=== PATIENT | male | born 1945 | race Caucasian/White ===

== ENCOUNTER 2018-12-28 09:57 | Outpatient (CLI) | payer MEDICARE, BC, SELFPAY ==
[2018-12-28 11:27] LABS: CREATININE 1.01 mg/dL (0.70-1.30)
[2018-12-29 08:45] LABS: PSA, Screening 3.4 ng/ml (0-6.5)
== END 2018-12-28 10:17 ==
PROVIDERS: PCP Family Medicine; Visit Provider Family Medicine
DX: R03.0 Elevated blood-pressure reading, without diagnosis of hypertension (principal); Z12.5 Encounter for screening for malignant neoplasm of prostate
CPT/HCPCS: 84153; 82565

== ENCOUNTER 2019-09-07 01:51 | Outpatient (CLI) | payer MEDICARE, BC, SELFPAY ==
[2019-09-07 09:00] LABS: HCT 43.8 % (40.0-50.0); HGB 14.6 g/dL (13.5-17.5); Mean Corp. HGB Concentration 33.3 g/dL (32.0-36.0); Mean Corpuscular Hemoglobin 27.3 pg (27.0-33.0); Mean Platelet Volume 10.1 fL (8.0-11.0); Platelet Count 248 x1000/uL (130-400); RBC 5.34 m/cumm (4.50-6.00); RBC Distribution Width 14.8 % (11.8-14.1); White Blood Cell Count 4.85 k/cumm (4.4-10.8)
[2019-09-07 10:22] LABS: ALT 24 U/L (16-63); AST 18 U/L (15-37); Albumin 3.7 g/dL (3.4-5.0); Alkaline Phosphatase 66 U/L (46-116); Anion Gap 9.9 mmol/L (3-11); BUN 16 mg/dL (7-18); Bilirubin, Total 0.5 mg/dL (0.2-1.0); CO2 27.1 mmol/L (21.0-32.0); CREATININE 1.15 mg/dL (0.70-1.30); Calcium 8.8 mg/dL (8.5-10.1); Calculated LDL 93 mg/dL; Chloride 104 mmol/L (98-107); Cholesterol 157 mg/dL (<200); Glucose 98 mg/dL (74-106); HDL Cholesterol 58 mg/dL (40-60); Potassium 4.2 mmol/L (3.5-5.1); Sodium 141 mmol/L (136-145); TSH (W/Ref FT4) 2.86 uIU/mL (0.36-3.74); Total Protein 7.3 g/dL (6.4-8.2); Triglyceride 30 mg/dL (<150)
== END 2019-09-07 02:11 ==
PROVIDERS: PCP Family Medicine; Visit Provider Family Medicine
DX: I10 Essential (primary) hypertension (principal); F32.9 Major depressive disorder, single episode, unspecified; N20.0 Calculus of kidney
CPT/HCPCS: 36415; 80053; 80061; 85027; 84443

== ENCOUNTER 2020-08-25 15:44 | Outpatient (CLI) | payer MEDICARE, BC, SELFPAY ==
--- NOTE | 2020-08-25 13:15 | DI.RAD_ITS ---
EXAM: XR KNEE RT 3V AP,LAT,SURJIT CLINICAL HISTORY: R knee pain. TECHNIQUE: 2D digital imaging was performed. COMPARISON: No previous for comparison. FINDINGS: BONES: No acute fracture is present. No bony destructive lesion is seen. There is a small enthesophyt e at the superior patella. JOINTS: The knee is normally aligned. There is mild narrowing of the medial femoral tibial joint. N o joint effusion is seen. There is a small osteophyte at the posterior patella. SOFT TISSUE: Atherosclerosis. IMPRESSION: Mild degenerative changes of the right knee. DATA REPOSITORY: RADIATION DOSE DELIVERED:
--- NOTE | 2020-08-25 13:30 | DI.RAD_ITS ---
EXAM: XR HIP RT COMPLETE AP PELVIS CLINICAL HISTORY: R knee pain. TECHNIQUE: 2D digital imaging was performed. COMPARISON: No exams were available for comparison FINDINGS: BONES: No acute fracture is present. No bony destructive lesion is seen. JOINTS: No dislocation present. Marked degenerative changes are seen at the right hip characterized b y joint space narrowing, subchondral cyst and sclerosis, and periarticular spurring. Note is made of a left total hip replacement. SOFT TISSUE: Surgical clips are seen overlying the pelvis. Vascular calcifications are present. IMPRESSION: Marked degenerative changes of the right hip. Left THR. DATA REPOSITORY: RADIATION DOSE DELIVERED:
== END 2020-08-25 16:04 ==
PROVIDERS: PCP Family Medicine; Referring Provider Family Medicine; Visit Provider Student in an Organized Health Care Education/Training Program
DX: M17.11 Unilateral primary osteoarthritis, right knee (principal); M16.11 Unilateral primary osteoarthritis, right hip; Z96.642 Presence of left artificial hip joint
CPT/HCPCS: 73562; 99203; 73502

== ENCOUNTER 2021-03-31 03:37 | Outpatient (CLI) | payer MEDICARE, BC, SELFPAY ==
[2021-03-31 11:51] LABS: CREATININE 1.1 mg/dL (0.70-1.30); Potassium 4.2 mmol/L (3.5-5.1)
== END 2021-03-31 03:38 | disposition home or self-care (01) ==
LOC: LBO 03:37
PROVIDERS: PCP Family Medicine; Visit Provider Family Medicine
DX: I10 Essential (primary) hypertension (principal); E11.65 Type 2 diabetes mellitus with hyperglycemia
CPT/HCPCS: 36415; 82565; 84132

== ENCOUNTER 2021-04-02 03:06 | Outpatient (CLI) | payer MEDICARE, BC, SELFPAY ==
--- NOTE | 2021-04-02 08:45 | DI.RAD_ITS ---
Exam(s) RF JOINT INJECTION FLUORO GUID EXAM: RF JOINT INJECTION FLUORO GUID CLINICAL HISTORY: R HIP INJ UNDER FLUORO, PRIMARY OA RT HIP, M16.11 TECHNIQUE: Fluoroscopy provided. Radiologist not present. CONTRAST MATERIAL: None COMPARISON: No exams were available for comparison FINDINGS: Fluoroscopy was provided for Dr. Bullock during right hip therapeutic injection. Submitted image(s) reveal needle placement at the lateral aspect of the femoral head. Contrast was i njected. Please refer to the procedure report for complete details. Cumulative Dose: kirby Mcgraw=5.0 mGy IMPRESSION: RADIATION DOSE DELIVERED:
[2021-04-02] MEDS: Omnipaque 300 MG/ML 10 ML BTL IJ (14:02)
[2021-04-02] MEDS: Bupivacaine 0.5% Pres-Free 10 ML VIAL IJ (14:03)
[2021-04-02] MEDS: methylPREDNISolone ACETATE 80 MG/ML VIAL IM (14:03)
--- NOTE | 2021-04-02 14:28 | W.PROCNOTE ---
Date of service: 04/02/21 Time of Service: 13:42 Procedure Note Date of procedure: 04/02/21 Procedure: Right Hip Injection with Fluoroscopic Guidance Surgeon/Proceduralist/Physician: Juvencio Bullock Procedure Diagnosis: Right Hip Osteoarthritis Procedure Indications: Ariella has had persistent pain of the RIGHT hip and groin. Noninvasive measures have been tried. To serve as both diagnostic and therapeutic, an injection under fluoroscopy was recommended. I had discussed the risks of the procedure and the patient elected to proceed. Procedure Description: Ariella was greeted in the flouroscopy room. The correct side was identified and the consent was reviewed with the patient and signed. The patient was then placed in the supine position on the fluoroscopy table. The RIGHT hip was then prepped with Chloraprep. The anterolateral injection starting point was identiifed by bony landmarks and fluoroscopy. The skin and soft tissue in the tract of the injection was anesthetized with 1% Lidocaine. A spinal needle was then inserted deep into the hip joint at the level of the lateral femoral neck under fluoroscopic guidance. A small amount of Omnipaque solution was injected to confirm intraarticular placement. Once confirmed, the hip was injected with 6cc of 0.5% Bupivicaine and 80mg of Depo-Medrol. A bandaid was placed on the injection site. The patient tolerated the procedure well and noted improvement in pre-injection pain.
== END 2021-04-02 03:26 ==
PROVIDERS: PCP Family Medicine; Visit Provider Student in an Organized Health Care Education/Training Program
DX: M16.11 Unilateral primary osteoarthritis, right hip (principal); M25.551 Pain in right hip; R10.31 Right lower quadrant pain
CPT/HCPCS: 20610; 77002; J1040

== ENCOUNTER 2021-05-27 02:10 | Outpatient (CLI) | payer MEDICARE, BC, SELFPAY ==
--- NOTE | 2021-05-27 07:00 | DI.US_ITS ---
Exam(s) US LOWER EXTREMITY VENOUS RT EXAM: US LOWER EXTREMITY VENOUS RT CLINICAL HISTORY: superficial thrombus right calf,PHLEBITIS,THROMBOPHLEBITIS,I80.8 TECHNIQUE: Grayscale, color, and doppler imaging of the deep venous system of the right lower extrem ity was performed. COMPARISON: None FINDINGS: There is no evidence of intraluminal thrombus and there is normal compression and augmentation demons trated within the common femoral vein, femoral vein, and popliteal vein. In the ipsilateral calf the interrogated veins also exhibit normal compression/ augmentation properti es. The ipsilateral saphenofemoral junction is patent. There are 2 incidental findings. Firstly, there is a Swain cyst in the popliteal fossa measuring 2.4 x 1.6 x 2.1 cm. Secondly, in the anterior upper calf region there is an area of heterogeneous echoes measuring approx imately 2.1 x 0.6 x 2.2 cm which corresponds to an apparent palpable lump, apparently possible site o f injury. IMPRESSION: 1. No evidence of DVT in the right lower extremity. 2. There is a 21 x 6 x 22 millimeter finding in the anterior upper calf which is partially solid par tially cystic and possibly represents hematoma, given that there was apparently trauma to this area a nd this is the area of palpable lump. There is no superficial thrombophlebitis evident at this level . DATA REPOSITORY:
== END 2021-05-27 02:30 ==
PROVIDERS: PCP Family Medicine; Visit Provider Emergency Medicine
DX: I80.8 Phlebitis and thrombophlebitis of other sites (principal); R22.41 Localized swelling, mass and lump, right lower limb
CPT/HCPCS: 93971

== ENCOUNTER 2021-06-16 01:01 | Outpatient (CLI) | payer MEDICARE, BC, SELFPAY ==
--- NOTE | 2021-06-16 10:50 | DI.CT_ITS ---
Exam(s) CT RENAL COLIC WO EXAM: CT RENAL COLIC WO CLINICAL HISTORY: recurrent left flank pain,LT NEPHROLITHIASIS,N20.0. TECHNIQUE: Imaging Protocol: Axial computed tomography images with coronal and sagittal reformatted images were created and reviewed CONTRAST MATERIAL: Intravenous: none Oral: None COMPARISON: CT RENAL COLIC WO CONTRAST from 03/24/2016 FINDINGS: VISUALIZED LUNG BASES: No nodules nor pleural effusions evident. ABDOMEN: There is no ascites. LIVER: There are relatively stable hypodensities in the liver which exhibit minimal change from 2016 and are most probably benign cysts. GALLBLADDER/BILIARY: No obvious gallbladder pathology. CBD is not dilated. PANCREAS: No evidence of pancreatic mass nor dilatation of the pancreatic duct. SPLEEN: Spleen is not enlarged. No obvious intrasplenic lesions. ADRENALS: There are no significant adrenal masses. KIDNEYS:There is a 3.6 x 3.6 cm cyst in superior pole the right kidney. Slightly larger than on the previous study. No other significant focal findings in the right kidney. There is a small cyst in s uperior pole of the left kidney measuring 9 millimeters. Calculi seen in the lower pole of the left kidney are again noted but the previously present largest calculus in left kidney seen on the 2016 st udy has descended down the left ureter to the ureterovesical junction level, partially obscured by be am hardening artifact from the left hip prosthesis. However, there is significant dilatation of the left collecting system above this level with hydroureter and ipsilateral hydronephrosis.. ABDOMINAL AORTA: Abdominal aorta is not enlarged. LYMPH NODES: There is no retroperitoneal nor paraaortic adenopathy. ABDOMINAL WALL: Anterior abdominal wall hernia mesh noted both inguinal canals. No abnormal fluid co llections. GI: Extensive sigmoid diverticulosis. No obvious acute diverticulitis. PELVIS: LYMPH NODES: There is no intrapelvic nor inguinal adenopathy. GI: No evidence of appendicitis.Extensive sigmoid diverticulosis. No obvious acute diverticulitis. URINARY BLADDER: Not distended. Partially obscured by beam hardening artifact left hip prosthesis REPRODUCTIVE: Enlarged prostate OSSEOUS: Left hip prosthesis. Advanced degenerative changes right hip. IMPRESSION: 1. There is a large calculus in the lower left ureter which corresponds to the largest calculus which was evident in the left kidney on the prior CT scan of March 2016. This measures approximately 10 by 6 millimeters and is just above the ureterovesical junction. This area is partially obscured by kristie m hardening artifact from the ipsilateral left hip prosthesis. There few remaining smaller calculi i n the inferior pole the left kidney noted. 2. No calculi in the opposite-right kidney but there is a 3.6 cm benign cyst in the superior pole the right kidney noted, slightly increased in size from the prior study. No solid renal masses. 3. There is extensive sigmoid diverticulosis. No obvious acute diverticulitis although please note t hat the sigmoid is partially obscured by beam hardening artifact from the left hip prosthesis. Report sent stat. RADIATION DOSE DELIVERED: 782.89mGy.cm Total DLP DATA REPOSITORY: All CT scans at this facility are submitted to the National Radiology Data Registry (NRDR) Dose Index Registry (DIR) with the [employer] ([employer]). RADIATION OPTIMIZATION: All CT scans at this facility use at least one of these dose optimization te chniques: automated exposure control; mA and/or kV adjustment per patient size (includes targeted exa ms where dose is matched to clinical indication); or iterative reconstruction.
== END 2021-06-16 01:21 ==
PROVIDERS: PCP Family Medicine; Visit Provider Family Medicine
DX: N20.2 Calculus of kidney with calculus of ureter (principal); N28.1 Cyst of kidney, acquired; K76.89 Other specified diseases of liver; K57.30 Diverticulosis of large intestine without perforation or abscess without bleeding; Z96.642 Presence of left artificial hip joint
CPT/HCPCS: 74176

== ENCOUNTER → 2021-06-18 09:58 | Outpatient (BNVA) | payer MEDICARE, BC, SELFPAY | PROVIDERS: PCP Family Medicine; Referring Provider Family Medicine; Visit Provider Nurse Practitioner Gerontology | DX: N20.0 Calculus of kidney (principal); I10 Essential (primary) hypertension | CPT/HCPCS: 99214 ==

== ENCOUNTER 2021-06-18 15:25 | Outpatient (REF) | payer MEDICARE, BC, SELFPAY ==
[2021-06-23 17:19] LABS: Source: Passed Stone
== END 2021-06-18 15:26 | disposition home or self-care (01) ==
LOC: LBN 15:25
PROVIDERS: PCP Family Medicine; Visit Provider Nurse Practitioner Gerontology
DX: N20.0 Calculus of kidney (principal)
CPT/HCPCS: 82365

== ENCOUNTER 2021-07-22 00:17 | Outpatient (CLI) | payer MEDICARE, BC, SELFPAY ==
--- NOTE | 2021-07-22 06:45 | DI.US_ITS ---
Exam(s) US RENAL EXAM: US RENAL CLINICAL HISTORY: left stones monitoring/hydro?,N20.0,LT NEPHROLITHIASIS TECHNIQUE: Ultrasound performed using standard protocol. COMPARISON: US US LOWER EXTREMITY VENOUS RT from 05/27/2021 FINDINGS: Renal ultrasound was performed according to the usual protocol. Kidneys are normal in size and shape . There is no hydronephrosis. There is no visible nephrolithiasis at this time. Note is again made of a previously noted 37 millimeter in diameter simple cyst of the right renal mid pole. Urinary bladder is empty. IMPRESSION: No evidence of hydronephrosis or nephrolithiasis. DATA REPOSITORY:
== END 2021-07-22 00:37 ==
PROVIDERS: PCP Family Medicine; Visit Provider Nurse Practitioner Gerontology
DX: N20.0 Calculus of kidney (principal); N28.1 Cyst of kidney, acquired
CPT/HCPCS: 76770

== ENCOUNTER → 2021-07-27 13:24 | Outpatient (BNVA) | payer MEDICARE, BC, SELFPAY | PROVIDERS: PCP Family Medicine; Referring Provider Family Medicine; Visit Provider Nurse Practitioner Gerontology | DX: N20.0 Calculus of kidney (principal) | CPT/HCPCS: 99213 ==

== ENCOUNTER 2021-09-03 02:26 | Outpatient (CLI) | payer MEDICARE, BC, SELFPAY ==
--- NOTE | 2021-09-03 14:10 | DI.RAD_ITS ---
Exam(s) RF JOINT INJECTION FLUORO GUID EXAM: RF JOINT INJECTION FLUORO GUID CLINICAL HISTORY: R HIP PAIN,rt hip inj under fluoro,oa rt hip, m16.11 TECHNIQUE: Fluoroscopy provided. Radiologist not present. CONTRAST MATERIAL: None COMPARISON: No exams were available for comparison FINDINGS: Fluoroscopy was provided for Dr. Bullock during right hip injection. Submitted image(s) reveal needle placement at the lateral aspect of the junction of the upper femoral neck and femoral head. Intra-articular contrast injected Please refer to the procedure report for complete details. Cumulative Dose: kirby Mcgraw=0.527 mGy IMPRESSION: RADIATION DOSE DELIVERED:
--- NOTE | 2021-09-03 14:25 | W.PROCNOTE ---
Date of service: 09/03/21 Time of Service: 13:55 Procedure Note Date of procedure: 09/03/21 Procedure: Right Hip Injection with Fluoroscopic Guidance Surgeon/Proceduralist/Physician: Juvencio Bullock Procedure Diagnosis: Right Hip Osteoarthritis Procedure Indications: Ariella has had persistent pain of the RIGHT hip and groin. Noninvasive measures have been tried and he has had success with previous right hip injection. Therefore, an injection under fluoroscopy was recommended. I had discussed the risks of the procedure and the patient elected to proceed. Procedure Description: Ariella was greeted in the flouroscopy room. The correct side was identified and the consent was reviewed with the patient and signed. The patient was then placed in the supine position on the fluoroscopy table. The RIGHT hip was then prepped with Chloraprep. The anterolateral injection starting point was identiifed by bony landmarks and fluoroscopy. The skin and soft tissue in the tract of the injection was anesthetized with 1% Lidocaine. A spinal needle was then inserted deep into the hip joint at the level of the lateral femoral neck under fluoroscopic guidance. A small amount of Omnipaque solution was injected to confirm intraarticular placement. Once confirmed, the hip was injected with 6cc of 0.5% Bupivicaine and 80mg of Depo-Medrol. A bandaid was placed on the injection site. The patient tolerated the procedure well and noted improvement in pre-injection pain.
[2021-09-03] MEDS: methylPREDNISolone ACETATE 80 MG/ML VIAL IM (14:58)
[2021-09-03] MEDS: Omnipaque 300 MG/ML 10 ML BTL IJ (15:00)
[2021-09-03] MEDS: Bupivacaine 0.5% Pres-Free 10 ML VIAL 5 ML IJ (15:01)
== END 2021-09-03 02:46 ==
PROVIDERS: PCP Family Medicine; Visit Provider Student in an Organized Health Care Education/Training Program
DX: M16.11 Unilateral primary osteoarthritis, right hip (principal); M25.551 Pain in right hip; R10.31 Right lower quadrant pain
CPT/HCPCS: 20610; 77002; J1040

== ENCOUNTER 2021-12-14 14:43 | Outpatient (CLI) | payer MEDICARE, SELFPAY ==
--- NOTE | 2021-12-14 13:45 | DI.RAD_ITS ---
Exam(s) XR PELVIS AP EXAM: XR PELVIS AP CLINICAL HISTORY: [facility] planning. TECHNIQUE: 2D digital imaging was performed. One view with template ball COMPARISON: CR XR HIP RT COMPLETE AP PELVIS from 08/25/2020 FINDINGS: There has been no change in the left hip prosthesis. There has been further worsening of degenerativ e changes of the right hip. There is severe superior hip joint space narrowing with a [id number] a ppearance. There is periarticular spurring and subchondral cyst formation of the femoral head. Ther e is also some flattening of the femoral head and remodeling of the superior acetabulum. IMPRESSION: Severe degenerative changes of the right hip. DATA REPOSITORY: RADIATION DOSE DELIVERED:
== END 2021-12-14 14:44 | disposition home or self-care (01) ==
LOC: DIORS 14:43
PROVIDERS: PCP Family Medicine; Referring Provider Family Medicine; Visit Provider Student in an Organized Health Care Education/Training Program
DX: M16.11 Unilateral primary osteoarthritis, right hip (principal)
CPT/HCPCS: 99212; 72170

== ENCOUNTER → 2021-12-29 13:58 | Outpatient (BNVA) | payer MEDICARE, BC, SELFPAY | PROVIDERS: PCP Family Medicine; Referring Provider Family Medicine | DX: M16.11 Unilateral primary osteoarthritis, right hip (principal) ==

== ENCOUNTER 2022-01-04 01:52 | Outpatient (CLI) | payer MEDICARE, SELFPAY | END 2022-01-04 01:53 | disposition home or self-care (01) | LOC: LBO 01:53 | PROVIDERS: PCP Family Medicine; Visit Provider Student in an Organized Health Care Education/Training Program ==

== ENCOUNTER 2022-01-04 02:08 | Outpatient (CLI) | payer MEDICARE, SELFPAY ==
[2022-01-04 11:16] LABS: HCT 43.2 % (40.0-50.0); MCH 27.3 pg (27.0-33.0); MCHC 32.4 % (32.0-36.0); MCV 84 fL (80-95); MPV 10.8 fL (8.0-11.0); Platelet Count 238 10^3/uL (130-400); RBC 5.13 10^6/uL (4.36-5.78); RDW 14.6 % (11.8-14.1); RDW-SD 45.2 fL; WBC 7.39 10^3/uL (4.4-10.8)
[2022-01-04 11:58] LABS: Anion Gap 8.3 mmol/L (3-11); BUN 23 mg/dL (7-18); CO2 26.7 mmol/L (21.0-32.0); CREATININE 1.3 mg/dL (0.70-1.30); Calcium 8.9 mg/dL (8.5-10.1); Chloride 110 mmol/L (98-107); Estimated GFR 53.39 (mL/min/1.73m2); Glucose 108 mg/dL (74-106); Potassium 4.3 mmol/L (3.5-5.1); Sodium 145 mmol/L (136-145)
[2022-01-05 11:30] LABS: COVID-19 RT-PCR UVMMC Result Negative (Negative)
== END 2022-01-04 02:09 | disposition home or self-care (01) ==
LOC: LBO 02:09
PROVIDERS: PCP Family Medicine; Visit Provider Student in an Organized Health Care Education/Training Program
DX: M25.551 Pain in right hip (principal); M16.11 Unilateral primary osteoarthritis, right hip; Z01.818 Encounter for other preprocedural examination; Z20.822 Contact with and (suspected) exposure to COVID-19; Z01.812 Encounter for preprocedural laboratory examination
CPT/HCPCS: 36415; 80048; 85027; 87635; U0003

== ENCOUNTER 2022-01-06 08:23 | Day surgery (SDC) | payer MEDICARE, SELFPAY ==
[2022-01-06] VITALS (8 sets, daily range): BP systolic 150–198; BP diastolic 82–98; PULSE 51–66; RESP 6–18; TEMP 36.1–37; O2SAT 96–100; BMI 27.1
[2022-01-06] MEDS: Acetaminophen 500 MG TAB 1000 MG PO (08:58)
[2022-01-06] MEDS: Celecoxib 200 MG CAP 400 MG PO (08:58)
[2022-01-06] MEDS: Lactated Ringers 1,000 ML 80 ML IV (09:13)
--- NOTE | 2022-01-06 10:14 | W.ANESPRE ---
General Info Date of Service Date Performed: 01/06/22 Height: 6 ft 1 in Weight: 93.3 kg Body Mass Index (BMI): 27.1 Surgical Procedure: Operation Date: 01/06/22 12:50 Proposed Procedure Side Surgeon p Hip Total Hip Anterior Right Juvencio Bullock MD Meds Allergies and Home Medications Allergies Allergy/AdvReac Type Severity Reaction Status Date / Time No Known Allergies Allergy Verified 01/06/22 08:41 Home Medication Medication Instructions Recorded prevagen 50 mg PO DAILY 03/18/21 valsartan 80 mg tablet 80 mg PO DAILY #90 tab 08/11/21 naproxen sodium 220 mg capsule 220 mg PO BID PRN 12/29/21 (Aleve) Current Visit Medications: Current Medications Generic Name Dose Route Start Last Admin Trade Name Freq PRN Reason Stop Dose Admin Acetaminophen 1,000 mg 01/06/22 06:00 01/06/22 08:58 Acetaminophen 500 Mg Tab PO 1,000 mg PREOP HANK Administration Celecoxib 400 mg 01/06/22 06:00 01/06/22 08:58 Celecoxib 200 Mg Cap PO 400 mg PREOP HANK Administration Tranexamic Acid 1,000 mg/ 60 mls @ 360 mls/hr 01/06/22 06:00 Sodium Chloride IV 01/06/22 23:59 PREOP HANK Ringer's Solution 1,000 mls @ 80 mls/hr 01/06/22 06:00 01/06/22 09:13 IV 02/04/22 23:59 80 mls/hr INFUSION HANK Administration Cefazolin Sodium/Dextrose 2 gm in 50 mls @ 100 mls/hr 01/06/22 06:00 Ancef Duplex IVPB 02/04/22 23:59 PREOP HANK IV Miscellaneous Supplies 1 each 01/06/22 06:00 Iv Access IV 02/04/22 23:59 DIRECTED HANK Sodium Chloride 0 ml 01/06/22 06:00 Normal Saline Flush 10 Ml Syr IV 02/04/22 23:59 PRN PRN Sodium Chloride 0 ml 01/06/22 06:00 Normal Saline 10 Ml Vial IJ 02/04/22 23:59 DIRECTED PRN Sterile Water 0 ml 01/06/22 06:00 Water,Injection,Sterile 10 Ml Vial IJ 02/04/22 23:59 DIRECTED PRN PFSH Active Problems Active Problems: Problem Status Onset Code Calculus of left kidney N20.0 Bone spur 05/03/13 M77.9 Depressive disorder 08/15/13 F32.9 Elevated BP without diagnosis of hypertension 10/07/16 R03.0 History of tobacco use Z87.891 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) [facility] [place] Primary osteoarthritis of right ankle [place] Ankle Fusion 2016 Repair of inguinal hernia (~2000) B/L Tobacco Smoking/Tobacco Use Status: Former Tobacco Use Second hand exposure: Yes Alcohol Alcohol Intake: current Alcohol intake frequency: 0-2 drinks per day Alcohol type: beer and hard liquor Substance Use Substance use: Never Substance use type: does not use Vital Signs and Lab Results Vital Signs Most Recent Vital Signs in EMR: Most Recent Vital Signs Temp Pulse Resp BP Pulse Ox 37.0 C 66 18 150/90 H 96 01/06/22 08:42 01/06/22 08:42 01/06/22 08:42 01/06/22 08:42 01/06/22 08:42 Lab Results Blood Type / Crossmatch: No Data to Display Complete Blood Count: White Blood Count 7.39 10^3/uL (4.4-10.8) 01/04/22 11:10 01/04/22 Red Blood Count 5.13 10^6/uL (4.36-5.78) 01/04/22 11:10 01/04/22 Hemoglobin 14.0 g/dL (13.5-17.5) 01/04/22 11:10 01/04/22 Hematocrit 43.2 % (40.0-50.0) 01/04/22 11:10 01/04/22 Platelet Count 238 10^3/uL (130-400) 01/04/22 11:10 01/04/22 Complete Metabolic Panel: Sodium Level 145 mmol/L (136-145) 01/04/22 11:10 01/04/22 Potassium Level 4.3 mmol/L (3.5-5.1) 01/04/22 11:10 01/04/22 Chloride Level 110 mmol/L (98-107) H 01/04/22 11:10 01/04/22 Carbon Dioxide Level 26.7 mmol/L (21.0-32.0) 01/04/22 11:10 01/04/22 Blood Urea Nitrogen 23 mg/dL (7-18) H 01/04/22 11:10 01/04/22 Creatinine 1.3 mg/dL (0.70-1.30) 01/04/22 11:10 01/04/22 Estimated GFR/1.73 m2 53.39 (mL/min/1.73m2) 01/04/22 11:10 01/04/22 Calcium Level 8.9 mg/dL (8.5-10.1) 01/04/22 11:10 01/04/22 Glucose Level 108 mg/dL (74-106) H 01/04/22 11:10 01/04/22 Liver Function Panel: No Data to Display Coagulation Panel: No Data to Display Cardiac Panel: No Data to Display Arterial Blood Gas: No Data to Display Venous Blood Gas: No Data to Display Pancreas Panel: No Data to Display Thyroid Panel: No Data to Display Infectious Disease: Coronavirus (COVID-19)(PCR) Negative (Negative) 01/04/22 10:57 01/04/22 Blood Cultures: No Data to Display Toxicology Panel: No Data to Display Anesthesia Assessment and Plan Anesthesia History Personal History: No History of Anesthesia Complications Family History: No Family History of Anesthesia Complications Exercise Tolerance Exercise Tolerance: Metabolic Equivalents>4 Pertinent Negatives Pertinent Negatives: No Symptoms of GERD Cardiac & Pulmonary Exam Cardiac Exam: Normal S1/S2 Heart Sounds Pulmonary Exam: Clear Bilateral Breath Sounds Implantable Cardiac Device Does patient have a Pacemaker or an ICD?: No Airway Exam Known Difficult Airway: No Mallampati Class: 2 Mouth Opening: Normal (> 3cm) Thyromental Distance: Greater than 3 cm Neck Range of Motion: Full ROM Neck Circumference: Normal Teeth Condition: Normal Dentition ASA Classification ASA Score: ASA 2 Emergency Case?: No NPO Status NPO Status: NPO Clears >2 hours, Solids >8 hours Anesthesia Plan Resuscitation Status: Full Code Anesthesia Technique: Spinal Anesthesia Airway Planned: Natural Airway Monitors Used: Standard Monitors
--- NOTE | 2022-01-06 10:33 | W.ANESPRE ---
General Info Date of Service Date Performed: 01/06/22 Height: 6 ft 1 in Weight: 93.3 kg Body Mass Index (BMI): 27.1 Surgical Procedure: Operation Date: 01/06/22 12:50 Proposed Procedure Side Surgeon p Hip Total Hip Anterior Right Juvencio Bullock MD Meds Allergies and Home Medications Allergies Allergy/AdvReac Type Severity Reaction Status Date / Time No Known Allergies Allergy Verified 01/06/22 08:41 Home Medication Medication Instructions Recorded prevagen 50 mg PO DAILY 03/18/21 valsartan 80 mg tablet 80 mg PO DAILY #90 tab 08/11/21 naproxen sodium 220 mg capsule 220 mg PO BID PRN 12/29/21 (Aleve) Current Visit Medications: Current Medications Generic Name Dose Route Start Last Admin Trade Name Freq PRN Reason Stop Dose Admin Acetaminophen 1,000 mg 01/06/22 06:00 01/06/22 08:58 Acetaminophen 500 Mg Tab PO 1,000 mg PREOP HANK Administration Celecoxib 400 mg 01/06/22 06:00 01/06/22 08:58 Celecoxib 200 Mg Cap PO 400 mg PREOP HANK Administration Tranexamic Acid 1,000 mg/ 60 mls @ 360 mls/hr 01/06/22 06:00 Sodium Chloride IV 01/06/22 23:59 PREOP HANK Ringer's Solution 1,000 mls @ 80 mls/hr 01/06/22 06:00 01/06/22 09:13 IV 02/04/22 23:59 80 mls/hr INFUSION HANK Administration Cefazolin Sodium/Dextrose 2 gm in 50 mls @ 100 mls/hr 01/06/22 06:00 Ancef Duplex IVPB 02/04/22 23:59 PREOP HANK IV Miscellaneous Supplies 1 each 01/06/22 06:00 Iv Access IV 02/04/22 23:59 DIRECTED HANK Sodium Chloride 0 ml 01/06/22 06:00 Normal Saline Flush 10 Ml Syr IV 02/04/22 23:59 PRN PRN Sodium Chloride 0 ml 01/06/22 06:00 Normal Saline 10 Ml Vial IJ 02/04/22 23:59 DIRECTED PRN Sterile Water 0 ml 01/06/22 06:00 Water,Injection,Sterile 10 Ml Vial IJ 02/04/22 23:59 DIRECTED PRN PFSH Active Problems Active Problems: Problem Status Onset Code Calculus of left kidney N20.0 Bone spur 05/03/13 M77.9 Depressive disorder 08/15/13 F32.9 Elevated BP without diagnosis of hypertension 10/07/16 R03.0 History of tobacco use Z87.891 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) [facility] [place] Primary osteoarthritis of right ankle [place] Ankle Fusion 2016 Repair of inguinal hernia (~2000) B/L Tobacco Smoking/Tobacco Use Status: Former Tobacco Use Second hand exposure: Yes Alcohol Alcohol Intake: current Alcohol intake frequency: 0-2 drinks per day Alcohol type: beer and hard liquor Substance Use Substance use: Never Substance use type: does not use Vital Signs and Lab Results Vital Signs Most Recent Vital Signs in EMR: Most Recent Vital Signs Temp Pulse Resp BP Pulse Ox 37.0 C 66 18 150/90 H 96 01/06/22 08:42 01/06/22 08:42 01/06/22 08:42 01/06/22 08:42 01/06/22 08:42 Lab Results Blood Type / Crossmatch: No Data to Display Complete Blood Count: White Blood Count 7.39 10^3/uL (4.4-10.8) 01/04/22 11:10 01/04/22 Red Blood Count 5.13 10^6/uL (4.36-5.78) 01/04/22 11:10 01/04/22 Hemoglobin 14.0 g/dL (13.5-17.5) 01/04/22 11:10 01/04/22 Hematocrit 43.2 % (40.0-50.0) 01/04/22 11:10 01/04/22 Platelet Count 238 10^3/uL (130-400) 01/04/22 11:10 01/04/22 Complete Metabolic Panel: Sodium Level 145 mmol/L (136-145) 01/04/22 11:10 01/04/22 Potassium Level 4.3 mmol/L (3.5-5.1) 01/04/22 11:10 01/04/22 Chloride Level 110 mmol/L (98-107) H 01/04/22 11:10 01/04/22 Carbon Dioxide Level 26.7 mmol/L (21.0-32.0) 01/04/22 11:10 01/04/22 Blood Urea Nitrogen 23 mg/dL (7-18) H 01/04/22 11:10 01/04/22 Creatinine 1.3 mg/dL (0.70-1.30) 01/04/22 11:10 01/04/22 Estimated GFR/1.73 m2 53.39 (mL/min/1.73m2) 01/04/22 11:10 01/04/22 Calcium Level 8.9 mg/dL (8.5-10.1) 01/04/22 11:10 01/04/22 Glucose Level 108 mg/dL (74-106) H 01/04/22 11:10 01/04/22 Liver Function Panel: No Data to Display Coagulation Panel: No Data to Display Cardiac Panel: No Data to Display Arterial Blood Gas: No Data to Display Venous Blood Gas: No Data to Display Pancreas Panel: No Data to Display Thyroid Panel: No Data to Display Infectious Disease: Coronavirus (COVID-19)(PCR) Negative (Negative) 01/04/22 10:57 01/04/22 Blood Cultures: No Data to Display Toxicology Panel: No Data to Display Anesthesia Assessment and Plan Anesthesia History Personal History: No History of Anesthesia Complications Family History: No Family History of Anesthesia Complications Exercise Tolerance Exercise Tolerance: Metabolic Equivalents>4 Implantable Cardiac Device Does patient have a Pacemaker or an ICD?: No Airway Exam Known Difficult Airway: No Mallampati Class: 2 Mouth Opening: Normal (> 3cm) Thyromental Distance: Greater than 3 cm Neck Range of Motion: Full ROM Neck Circumference: Normal Teeth Condition: Normal Dentition
--- NOTE | 2022-01-06 11:24 | W.PM.DS.N ---
DS: Diagnosis Discharge Diagnosis (1) Primary osteoarthritis of right hip: Status: Chronic Discharge Plan Disposition Patient Disposition: HOME Condition: Good Discharge Details Reason For Visit: Right hip DJD Attending Provider: Juvencio Bullock Primary Care Provider: Nixon Adrian Home Meds and New Rx's Prescriptions: New celecoxib [Celebrex] 200 mg capsule 200 mg PO BID Qty: 30 0RF aspirin 81 mg tablet,delayed release (DR/EC) 81 mg PO BID 30 Days Qty: 60 0RF acetaminophen 500 mg tablet 1,000 mg PO Q8H PRN Qty: 90 0RF Rx Instructions: Take two tablets up to every 8 hours as needed for pain pantoprazole 40 mg tablet,delayed release (DR/EC) 40 mg PO DAILY 30 Days Qty: 30 0RF docusate sodium [Colace] 100 mg capsule 100 mg PO BID Qty: 30 0RF oxycodone 5 mg tablet 5 mg PO Q6H PRN (Reason: severe post-operative pain) Qty: 12 0RF Rx Instructions: Take one tablet up to every 6 hours as needed for severe pain Continued prevagen 50 mg PO DAILY 0RF valsartan 80 mg tablet 80 mg PO DAILY Qty: 90 3RF Discontinued naproxen sodium [Aleve] 220 mg capsule 220 mg PO BID PRN0RF Discharge Instructions Additional Instructions: Total Hip Discharge Instructions Activity: The most important activity is to walk. You should try to take short walks a few times a day. You have no restrictions on movement or positioning, but do not try to force what you do. You will find some stiffness and weakness with hip flexion (lifting your knee). Do not try to strengthen this too early, continue to practice walking and stairs and this will come. - Outpatient physical therapy can be helpful to help return you to a normal gait and improve your flexibility and strength. This can start around 2 weeks. For some patients, it?s not necessary. Usually this is determined at the time of discharge or at the first post-operative visit. - You should wear the YVONNE hose on both legs for 2 weeks. Dressing: Keep the surgical dressing in place for at least one week. After the first week it may be removed and replace with light gauze and tape or nothing. It may get wet after 3 days but avoid soaking the dressing. If it gets wet, just lightly pat dry. It is important to always keep some gauze between skin folds, especially when you are sitting. Spend some time with the wound exposed when you are lying flat as the incision does wrinkle onto itself. Medications: - You should take Tylenol and an anti-inflammatory Celebrex as your primary pain control medications. If the Celebrex is too expensive or not covered, please call the office for another alternative (Advil/Ibuprofen or Naproxen/Aleve). - You have been prescribed a stronger pain medication Oxycodone for breakthrough pain, take as needed as prescribed. - You have also been prescribed a stomach acid reduction agent Pantoprozole to help reduce stomach acid and reflux. - You will be taking Aspirin 81mg twice a day for DVT prevention unless instructed otherwise. - If you have constipation you should take Colace (which has been prescribed) or Miralax (which you may purchase [id number]). It takes most people 3-4 days to have a bowel movement. Follow-up: 2 weeks If you have any acute concerns or questions, please do not hesitate to contact the office at [phone]. You may contact Dr. Bullock with any questions after hours through the hospital at [phone] or on his cell phone at [phone]. Referrals: Juvencio Bullock MD [ [facility] STAFF PHYSICIAN] - Equipment/Supplies: Walker Activity:: Activity as Tolerated Remove Dressings/Wound Care:: Do Not Remove Shower/Bathe:: Cover Diet:: As Tolerated Discharge Orders Discharge Orders: Discharge Order (Routine); Ordered 01/06/22 Ordered By: Juvencio Bullock DS: Summary Time Spent with Patient providing and/or coordinating discharge services: Greater than 30 minutes Status at Discharge Functional status at discharge: uses cane/walker Overall status at discharge: patient is progressing back to baseline Mental Status: mental status grossly normal Speech and Movement: speech and movement normal Mood: congruent mood Affect: normal affect Exam Psych Mental Status: mental status grossly normal Speech and Movement: speech and movement normal Mood: congruent mood Affect: normal affect DS: Data Vitals/I&O Vitals and I&O: Vital Signs Temperature 98.6 F 01/06/22 08:42 Pulse 66 01/06/22 08:42 Pulse Rhythm Regular 01/06/22 08:42 Respiratory Rate 18 01/06/22 08:42 Respiratory Depth Deep 01/06/22 08:42 Blood Pressure 150/90 H 01/06/22 08:42 Pulse Oximetry 96 01/06/22 08:42 Oxygen Delivery Method Room Air 01/06/22 08:42 Oxygen Flow Rate 0 01/06/22 08:42 Pain Level 2 01/06/22 08:42 Intake & Output 01/05/22 01/05/22 01/06/22 11:59 23:59 11:59 Weight 207 lb 15.992 oz 205 lb 11.06 oz PFSH All Active Problems Calculus of left kidney (Acute) Bone spur (Acute 05/03/13) FIRST TOE Depressive disorder (Acute 08/15/13) seasonal affective disorder Elevated BP without diagnosis of hypertension (Acute 10/07/16) History of tobacco use (Acute) Osteoarthritis of left thumb (Acute 10/07/16) Sleep disorder (Acute 01/28/16) Tubular adenoma of colon (Acute 11/15/16) HTN (hypertension) (Chronic) Well adult (Acute) Trigger finger of right hand (Acute) little finger Knee pain, right anterior (Acute) Impacted cerumen of right ear (Acute) Primary osteoarthritis of right knee (Acute) Primary osteoarthritis of right hip (Chronic) Intra-articular injection under fluoroscopy: 09/03/2021; 04/02/2021 Phlebitis and thrombophlebitis (Acute) Left nephrolithiasis (Acute) Medical History Calculus of left kidney Depressive disorder Surgical History BONE SPURS (FEET) (~1979) great toes bilateral - Dr. 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 [place] Primary osteoarthritis of right ankle [place] Ankle Fusion 2016 Repair of inguinal hernia (~2000) B/L Family History Mother , 87 No problems noted. Father , 85 Alzheimer's disease Sister Asthma Brother , 66 Parkinson's disease Brother CAD (coronary artery disease) Asthma Son No problems noted. Daughter No problems noted. Social History Smoking/Tobacco Use Status: Former Tobacco Use tobacco type: cigarettes, pipe and cigars Quit Date: 02/03/90 Second Hand Exposure: Yes Smoking risk assessment performed?: Yes Alcohol Intake: current Alcohol Intake frequency: 0-2 drinks per day Alcohol type: beer and hard liquor Drug use: Never Substance use type: does not use Caregiver/Support person: Yes Household members: spouse Housing: house Communication Needs: None Do you need help understanding health information?: Never Pets and animals: No Sexually active: Yes Do you think of yourself as: straight/heterosexual Current gender identity: male What is your relationship status?: Panel score (0-1 are the most socially isolated patients): 1 What type of physical activity do you participate in: walking and bicycling Duration: 30-45 minutes/day Frequency: daily Ayesha/Sikh: None Special ayesha needs: No Seatbelt use: always Helmet use: Yes Helmet use: always Drive intox or ride w/intox transit bus driver: No Do you feel safe at home: Yes Do you feel safe in your relationship?: Yes Additional Social history: unable to assess privately
[2022-01-06] MEDS: ceFAZolin 2 GM/50 ML BAG IVPB (12:13)
--- NOTE | 2022-01-06 13:21 | DI.RAD_ITS ---
Exam(s) XR HIP RT IN OR EXAM: XR HIP RT IN OR CLINICAL HISTORY: Primary osteoarthritis of right hip. TECHNIQUE: 2D and realtime digital imaging was performed. COMPARISON: No exams were available for comparison FINDINGS: Fluoroscopy was provided in the OR for Dr. Bullock. A hard copy image shows placement of a right hi p prosthesis. The alignment appears satisfactory. Please see procedure note for details. Fluoro time 24.1 seconds RADIATION DOSE DELIVERED: kirby Mcgraw=3.89 mGy
--- NOTE | 2022-01-06 14:10 | W.PM.OP ---
Date of service: 01/06/22 Time of Service: 13:55 Operative Note Operative Note DATE OF PROCEDURE: 01/06/22 PRE-OP DIAGNOSIS: Right Hip Osteoarthritis POST-OP DIAGNOSIS: same PROCEDURE: Right Anterior Total Hip Arthroplasty with Intraoperative Navigation SURGEON: Juvencio Bullock SUPERINTENDENT COMPRESSOR STATIONS: Felisa Torres ANESTHESIA TYPE: Spinal Refer to Anesthesia Record ESTIMATED BLOOD LOSS: 300 PATHOLOGY: none sent TOURNIQUET TIME: 0 COMPLICATIONS: None Patient was transported to: PACU Patient's condition: stable Implants: 1. Depuy [place] Acetabular Component, 58mm 2. Depuy Acetabular Liner, [id number] 3. Depuy Corail Coxa Vara Collared Femoral Stem, Size 14 4. Depuy Altrx Ceramic Femoral Head, Size 36+5mm Indications: I have seen Ariella in clinic for symptoms of hip arthritis, confirmed with radiographic findings. He has exhausted nonoperative methods and was having significant limitations in daily function and desired better function and less pain. I discussed the technical details of a hip replacement. I explained the risks of the procedure to include, but not limited to, bleeding, infection, pain, stiffness, fracture, damage to nerves and vessels, damage to muscles and tendons, loosening, instability, leg length inequality, need for repeat procedure, blood clot and cardiopulmonary demise. Despite these risks, Ariella elected to proceed. Findings: There was significant signs of arthritis throughout the hip with complete loss of cartilage of the superior femoral head. Procedure Description: Ariella was greeted in the preoperative holding area where the correct side was identified and marked. The consent was reviewed with the patient and signed. The history and physical was updated. All questions were answered. He was taken back to the operating room. A spinal anesthestic was then administered. The feet were wrapped with cast padding and Coban and then placed into the boot liners and then into the boots. Care was taken to protect the skin and make sure the heels were fully down and the boots were stable. The patient was then positioned onto the HANA table. Both legs were held in a neutral position. SCDs were applied. The patient was then slid down onto a peroneal post. Prophylactic antibiotics in the form of Cefazolin were administered. 1g of Tranxemic Acid was given intravenously within 30 minutes of incision. The right leg was then prepped with Chloraprep and draped in a standard fashion. A second prep with Chloraprep was performed prior to placement of a shower-curtain type drape with Iodine impregnated skin protection. A timeout to confirm correct identity, side and site, procedure, allergies, anesthesia, and medical concerns was performed. An obliquely oriented incision was made starting lateral to the ASIS and running distal over the Tensor Fascia Della (TFL) muscle belly toward the fibular head, approximately 10cm. The skin and soft tissue was dissected sharply, through Ke?s fascia, and to the fascia of the TFL. With the fascia and superior border of the IT band identified, the fascia was incised with a new knife just above any perforators from the IT band. The TFL muscle belly was bluntly dissected away from the fascia and moved laterally. The fat between TFL and rectus was identified to ensure the dissection was not within the TFL. Blunt dissection created space between abductors and the capsule and retractor was placed over the lateral femoral neck. The fibers of the rectus femoris tendon were identified and these were freed from the anterior capsule. A second cobra retractor was placed around the medial femoral neck. The TFL was further retracted laterally to show the deep fascia. Careful dissection through this layer identified three main crossing vessels of the lateral femoral circumflex. These were cauterized in multiple locations and then cut without any noticeable bleeding. The TFL was further released bluntly from the deep fascia to expose anterior hip capsule and fat The Miky orthopaedic retractor was then placed beneath the TFL and against sartorius and medial soft tissues to protect and retract the soft tissues. A T-capsulotomy was then performed starting at the superior lateral acetabulum and moving distally to the intertrochanteric ridge. These capsular flaps were tagged with a No. 1 Ethibond and elevated from within. The capsular flaps were released to the shoulder of the lateral neck and to the lesser trochanter to give excellent visualization of the proximal femur. A neck osteotomy was performed using an oscillating saw based on preoperative templates. This cut started in the shoulder and of the lateral neck and exited medially. The saw was at all times directed medially to avoid injury to the greater trochanter. Gross traction was applied to the leg and the osteotomy opened. The femoral head was removed with a corkscrew, making sure to protect the TFL on its exit. Traction was released after head removal. This was measured on the back table to determine the starting reamer size. Portions of the rectus obscuring visualization were minimally elevated off the superior acetabulum. An anterior retractor was placed over the anterior wall between capsule and labrum and attached to the Gripper retraction system. The femur was rotated to 90 degrees and medial capsule was fully released until the lesser trochanter was palpable and visible; the femur was returned to 30 degrees. A posterior retractor was placed similarly between capsule and labrum. This provided excellent visualization. The contents of the cotyloid fossa were removed with electrocautery and the labrum was removed with a knife. There was a notable floor osteophyte. There was significant chondromalacia of the superior acetabulum. Acetabular reaming began with a 54mm reamer. This first reaming was directed anterior to posterior and medial to get down to the true floor. This was inspected and reamed until the true floor was reached. The anterior retractor was then released and entry and exit was provided by traction on the capsular flaps. I then reamed sequentially up to a 58mm reamer where good fit was obtained. The larger reamers were oriented based on anatomical reference of the anterior and lateral tyler to ensure proper abduction and anteversion. Positioning and size was confirmed with the fluoroscopy. A 58mm Depuy [place] acetabular component was selected. The deep tissues were irrigated. The acetabular component was then impacted in a position of about 40-45 degrees of abduction and 15-20 degrees of anteversion, using the patient?s anatomy as the ultimate landmark. Fluoroscopy was used to confirm this. There was excellent program schedule clerk of the acetabular component and the inserting handle was removed. The acetabular liner, Depuy [id number] polyethylene liner, was inserted and lined up with the tines of the acetabular component. There was no soft tissue interposition. The liner was then impacted into position and confirmed to be well-seated. A portion of the tricia-articular cocktail was then injected around the acetabulum into the capsule and periosteum. This cocktail consisted of 123mg of Ropivacaine, 0.25mg of Epinephrine, 0.04mg of Clonidine, and 15mg of Ketorolac, diluted to 50cc. The leg was rotated to 120 degrees. Any remaining medial capsule was released until the lesser trochanter was easily palpable. A retractor was placed medially. The lateral capsule was further released into the shoulder to allow access to the greater trochanter. A Rosen retractor was placed over the greater trochanter which allowed the trochanter to flip in front of the capsule for excellent exposure. The leg was brought down into maximal extension and 20 degrees of adduction while ensuring there was no impingement on the acetabulum. Any remnant capsule within the trochanter was released. Piriformis and obturator externis were identified and protected. There was excellent access to the proximal femur. The lateral neck remnant was removed with a rongeur. A blunt canal probe was used to identify the canal and trajectory for later broaching. A box osteotome initiated the broach course. A small curved rasp and a curved curette were used to work laterally. Broaching then began with a size 8 Corail broach. This was inserted manually around the trochanter and into the canal before mallet blows. The broach was seated to a few millimeters below the cut level based on the neck cut and the preoperative template. Sequential broaching was continued with the Zaldivase pneumatic broaching device until a tight fit was obtained with good rotational control of the femur. A trial high offset neck was inserted along with a +5 trial head. The leg was brought out of extension and adduction and then reduced with traction and internal rotation. The leg was stable anteriorly in a position of 30 degrees of extension and 90 degrees of external rotation. Fluoroscopy was used to ensure there was no fracture and the stem was seated well. Leg lengths were checked with an AP pelvis and pelvic reference points. [email or web address] navigation system was used to confirm appropriate positioning and leg length and offset. Given that this leg was already longer than the contralateral side, the aim was not to add any leg length. Thus, going with the coxa vara would correctly recreate the offset with appropriate leg length. Once content with the desired offset and leg lengths, the leg was brought back into extension, external rotation and adduction. The periosteum and surrounding tissue was injected with remaining portion of the tricia-articular cocktail. The proximal femur was irrigated as well as the deep tissues. The Depuy Corail Coxa Vara collared stem, size 14, was then manually inserted into the proximal femur making sure to control rotation. It was then malleted into position with light blows, giving breaks to allow bone expansion and decrease risk of fracture. The selected Depuy Altrx Ceramic Head, size 36+5mm, was then placed onto the clean and dry trunnion and secured with impaction onto the tapered fit. The leg was brought back out of extension and adduction and reduced with traction and internal rotation. Stability was confirmed with no shuck at 90 degrees of external rotation and 30 degrees of extension. No impingement through range of motion arc. Final x-ray images were obtained with fluoroscopy to confirm adequate positioning and no intraoperative fracture. The deep tissues were thoroughly irrigated with Surgiphor, betadine solution. This was allowed to sit in the wound for 3 minutes before being thoroughly irrigated out with normal saline. The capsule was then reapproximated with the previously placed Ethibond sutures. The TFL fascia was finally closed with a No. 2 Stratafix, barbed suture. Deep tissues were then reapproximated with 0 Vicryl and a running 2-0 Vicryl. The skin was closed with a running 4-0 Monocryl in a subcuticular fashion. This was reinforced with skin glue. A Mepilex silver dressing was applied. At the end of the case, all counts were correct. Ariella was transferred to the hospital bed without difficulty and suffering no apparent complication. Ariella has a good prognosis. Physical therapy will start today and without restrictions, weight-bearing as tolerated. Aspirin 81mg BID will be used for DVT prophylaxis.
--- NOTE | 2022-01-06 15:16 | W.ANESPOSTOP ---
Postoperative Evaluation Date, Time and Location Date Performed: 01/06/22 Time Performed: 15:16 Patient Location: Day Surgery Unit Vital Signs Most Recent Imported Vital Signs: Most Recent Vital Signs Temp Pulse Resp BP Pulse Ox 36.3 C L 51 L 16 185/93 H 99 01/06/22 14:53 01/06/22 14:53 01/06/22 14:53 01/06/22 14:53 01/06/22 14:53 Pain Score Most Recent Pain Score: Most Recent Pain Score Pain Level 5 01/06/22 14:53 Assessment Mental Status: Awake (Alert & Oriented to Patient Baseline) Airway and Respiratory Function: Patent airway with normal (patient baseline) respiratory exam Cardiovascular Function: Hemodynamically Stable Hydration Status: Adequately Hydrated Nausea & Vomiting: No Nausea or Vomiting Pain: Pt. Denies Any Pain Peripheral Nerve Block: Patient did not receive a nerve block Postoperative Comments:: Pt. did not take valsartan this morning. We will give him his PO dose and have him continue tomorrow as usual.
--- NOTE | 2022-01-06 15:23 | PT.INIE ---
Date of service: 01/06/22 Time of Service: 15:23 PT Notes Visit Reasons: Right hip DJD Physical Therapy Day Surgery Initial Evaluation Date: 01/06/2022 Referring Doctor: IRISH Lacey PT Orders: PT CONSULT: S/P Ortho surgery Precautions: WBAT on R LE with AD. Patient Profile/Admitting Diagnosis: Ariella is a 76-year-old patient with primary osteoarthritis of the R hip and is S/P R anterior total hip arthroplasty on postoperative day 0. PMHX: Medical History?(Updated 12/29/21 @ 14:18 by Felisa Torres) Calculus of left kidney Depressive disorder Surgical History?(Updated 12/29/21 @ 14:18 by Felisa Torres) BONE SPURS (FEET) (~1979) great toes bilateral - Dr. MunroeColonoscopy - IV Sedation (11/15/16) History of total left hip replacement (10/31/07[place] [facility] [place] osteoarthritis of right ankle [place] Ankle Fusion 2016Repair of inguinal hernia (~2000) B/L Social History/Home Situation: Lives with in a private home with 4 steps to enter with a rail on the right going up. Independent with all ADLs prior to surgery. 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 Equipment Owned/DME: SPC Subjective: Agreeable to PT consult. Denies headache, chest pain, and dizziness throughout session. Agreeable to using FWW for the walk as he initially thought that he could do it without using anything. Did not report numbness in B LE. Objective: General Observation: Supine in bed. Mepilex Ag over surgical incision. TEDS in B legs. Mental Status: Alert and oriented x 4 Pain: Minimal ache in R hip that did not limit mobility performance ROM: Right Lower Extremity: Hip flexion WFL. Hip abduction WFL. Knee flexion WFL. Ankle dorsiflexion WFL. Ankle plantarflexion WFL. Left Lower Extremity: Hip flexion WFL. Hip abduction WFL. Knee flexion WFL. Ankle dorsiflexion WFL. Ankle plantarflexion WFL. Strength: Right Lower Extremity: Hip flexors 4/5. Hip abductors 4/5. Knee flexors 5/5. Knee extensors 4/5. Ankle dorsiflexors 1/5. Ankle plantarflexors 5/5. Left Lower Extremity:Hip flexors 5/5. Hip abductors 5/5. Knee flexors 5/5. Knee extensors 5/5. Ankle dorsiflexors 5/5. Ankle plantarflexors 5/5. Sensation: Intact as to pain and light pressure in bilateral lower extremity Bed Mobility/Transfers: Supine to sit supervision Sit to stand supervision Stand to sit supervision Bed to chair supervision Gait: 150 feet using FWW with step through gait pattern requiring only stand by assist. Stairs: Up and 6 x 4-inch steps and 4 x 6-inch steps while holding onto 1 rail and SPC with the orther hand, Step-to with stand by assist. THERA EX: LAQs x 10, Seated marches x 10, quads sets x10, gluteal sets x 10, ankle DF/PF x 10 Balance: Static Sitting: Normal Dynamic Sitting: Normal Static Standing: Fair Dynamic Standing: Fair Special Tests: Mobility Limitations Standardized Measure [facility] AM-PAC 6 clicks Basic Mobility Inpatient Short Form: Raw Score: 24 CMS Score: 0% deficit Informed Consent/Education: Patient instructed in purpose of PT consult. Education and training on initial set of exercises that can be done at home have been completed with patient and . Assessment: Ariella requires the use of FWW to maximize independence and reduce fall risk at home. Patient presents with clinical signs and symptoms consistent with current/admitting diagnoses that have resulted to mobility limitations, gait instability, generalized weakness, and impairment of motor control as demonstrated by the following impairment level findings: 1. Decreased strength to R hip major muscle groups 2. Impaired standing balance Impairments are contributing to the following functional limitations: 1. Inability to safely ambulate without assistive device 2. Increase completion time for mobility ADL performance 3. Increased fall risk Patient is assessed as a 92461 moderate complexity based on the following: History: 76-year-old male with impairment level findings, functional limitations, and past medical history as indicated above Examination: Demonstrable impairment in strength, balance, and mobility level with underlying impairments and functional limitations as documented above Presentation: Evolving Decision Makin moderate complexity Goals: N/A. PT evaluation and 1-2 treatment sessions only for functional mobility training using recommended AD and for HEP instruction. Plan of Care/Treatment Plan: N/A. PT evaluation and 1-2 treatment session only for functional mobility training using recommended AD and for HEP instruction. DISCHARGE RECOMMENDATIONS: [] Home with no services [] [] Home with services [specify] [X] Home with outpatient PT. Home when medically cleared by orthopedic surgeon. Outpatient PT to maximize return to full ADl performance and independent community ambulation. SNF for continued rehabilitation [] [] Retail Area Manager Care [] [] SNF versus LTC based on ability to participate and progress [] TREATMENT CODE/TIME: 66177 x 15 minutes, 73522 x 27 minutes beginning at 15:23 PM. Thank you for the opportunity to participate in the care of this patient. Asia Mnaning PT, DPT, CLT [facility] [place], [place]
[2022-01-06] MEDS: Valsartan 80 MG TAB PO (15:34)
== END 2022-01-06 16:34 | disposition home or self-care (01) ==
PROVIDERS: PCP Family Medicine; Visit Provider Student in an Organized Health Care Education/Training Program
PROC: (CPT 27130; principal; 2022-01-06 12:30)
DX: M16.11 Unilateral primary osteoarthritis, right hip (principal); I10 Essential (primary) hypertension; Z87.891 Personal history of nicotine dependence
CPT/HCPCS: 20985; 27130; C1766; 97162; 97530; 73501; J0690; J2250; J2405

== ENCOUNTER 2022-01-21 13:27 | Outpatient (CLI) | payer MEDICARE, SELFPAY ==
--- NOTE | 2022-01-21 11:15 | DI.RAD_ITS ---
Exam(s) XR HIP RT COMPLETE AP PELVIS EXAM: XR HIP RT COMPLETE AP PELVIS CLINICAL HISTORY: 1ST POST OP R MYKE. TECHNIQUE: 2D digital imaging was performed. Two images were obtained. AP and lateral views were ob tained. COMPARISON: CR XR HIP RT COMPLETE AP PELVIS from 08/25/2020 XA XR HIP RT IN OR from 01/06/2022 FINDINGS: BONES: There are stable post operative changes present. No fracture or dislocation. JOINTS: The orthopedic hardware is in good position. SOFT TISSUE: Atherosclerosis is present. Surgical clips and suture is seen in the pelvis. IMPRESSION: Stable postoperative changes. DATA REPOSITORY: RADIATION DOSE DELIVERED:
== END 2022-01-21 13:28 | disposition home or self-care (01) ==
LOC: DIORS 13:27
PROVIDERS: PCP Family Medicine; Referring Provider Family Medicine; Visit Provider Student in an Organized Health Care Education/Training Program
DX: Z96.641 Presence of right artificial hip joint (principal); Z47.1 Aftercare following joint replacement surgery
CPT/HCPCS: 73502

== ENCOUNTER → 2022-02-22 10:44 | Outpatient (BNVA) | payer MEDICARE, SELFPAY | PROVIDERS: PCP Family Medicine; Referring Provider Family Medicine; Visit Provider Student in an Organized Health Care Education/Training Program | DX: Z47.1 Aftercare following joint replacement surgery (principal); Z96.641 Presence of right artificial hip joint ==

== ENCOUNTER → 2022-04-05 10:09 | Outpatient (BNVA) | payer MEDICARE, SELFPAY | PROVIDERS: PCP Family Medicine; Referring Provider Family Medicine; Visit Provider Student in an Organized Health Care Education/Training Program | DX: Z47.1 Aftercare following joint replacement surgery (principal); Z96.641 Presence of right artificial hip joint ==

== ENCOUNTER 2023-01-10 09:54 | Outpatient (CLI) | payer MEDICARE, SELFPAY ==
--- NOTE | 2023-01-10 09:00 | DI.RAD_ITS ---
Exam(s) XR HIP RT AP LAT ONLY EXAM: XR HIP RT AP LAT ONLY INDICATION: annual f/u R MYKE. COMPARISON: CR XR HIP RT COMPLETE AP PELVIS from 01/21/2022 TECHNIQUE: 2D digital imaging was performed. Two views. FINDINGS: There has been no change in the alignment of the right hip prosthesis. No abnormal bony lucencies ar e seen. There has been previous abdominal wall hernia repair. Vascular calcifications noted. DATA REPOSITORY: RADIATION DOSE DELIVERED:
== END 2023-01-10 09:55 | disposition home or self-care (01) ==
LOC: DIORS 09:55
PROVIDERS: PCP Family Medicine; Referring Provider Family Medicine; Visit Provider Student in an Organized Health Care Education/Training Program
DX: Z96.641 Presence of right artificial hip joint (principal); Z47.1 Aftercare following joint replacement surgery
CPT/HCPCS: 99213; 73502

== ENCOUNTER 2023-04-04 12:04 | Outpatient (CLI) | payer MEDICARE, SELFPAY ==
[2023-04-04 11:32] LABS: Anion Gap 7.1 mmol/L (3-11); BUN 25 mg/dL (7-18); CO2 25.9 mmol/L (21.0-32.0); CREATININE 1.2 mg/dL (0.70-1.30); Calcium 8.9 mg/dL (8.5-10.1); Chloride 108 mmol/L (98-107); Estimated GFR 61.52 (mL/min/1.73m2); Glucose 125 mg/dL (74-106); Sodium 141 mmol/L (136-145)
[2023-04-04 12:58] LABS: Hemoglobin A1C 5.4 % (<5.7)
== END 2023-04-04 12:05 | disposition home or self-care (01) ==
LOC: LBO 12:05
PROVIDERS: PCP Family Medicine; Visit Provider Family Medicine
DX: E11.51 Type 2 diabetes mellitus with diabetic peripheral angiopathy without gangrene (principal); E87.1 Hypo-osmolality and hyponatremia
CPT/HCPCS: 36415; 80048; 83036

== ENCOUNTER 2024-04-02 02:38 | Outpatient (CLI) | payer MEDICARE, SELFPAY ==
[2024-04-02 14:38] LABS: CREATININE 1.4 mg/dL (0.70-1.30); Calculated LDL 91 mg/dL (<100); Cholesterol 170 mg/dL (<200); Estimated GFR 50.81 (mL/min/1.73m2); HDL Cholesterol 66 mg/dL (40-60); Potassium 4.2 mmol/L (3.5-5.1); Triglyceride 65 mg/dL (<150)
[2024-04-02 22:45] LABS: PSA, Screening 4.8 ng/mL (<=6.5)
[2024-04-03 09:24] LABS: Lab Add On Test DONE
[2024-04-03 09:32] LABS: BUN 20 mg/dL (7-18)
== END 2024-04-02 02:39 | disposition home or self-care (01) ==
LOC: LBO 02:38
PROVIDERS: Nurse Practitioner Family; PCP Family Medicine; Visit Provider Family Medicine
DX: Z13.6 Encounter for screening for cardiovascular disorders (principal); I10 Essential (primary) hypertension; Z12.5 Encounter for screening for malignant neoplasm of prostate
CPT/HCPCS: 36415; 80061; 84153; 84520; 82565; 84132

== ENCOUNTER 2024-11-29 09:15 | Outpatient (CLI) | payer MEDICARE, SELFPAY | END 2024-11-29 09:16 | disposition home or self-care (01) | LOC: DI.CM 09:15 | PROVIDERS: PCP Family Medicine; Visit Provider Physician Assistant | CPT/HCPCS: 93010 ==

== ENCOUNTER 2024-11-29 09:32 | Emergency (ER) | payer MEDICARE, SELFPAY ==
[2024-11-29] VITALS (56 sets, daily range): BP systolic 170–223; BP diastolic 86–167; PULSE 44–105; RESP 11–30; TEMP 36.4; O2SAT 91–97
--- NOTE | 2024-11-29 09:30 | RT.EKG_ITS ---
APPROVED REPORT Exam: Resting ECG Reason for Exam: Chest Pain Patient Location: E HR:89 bpm ECG Measurements Heart Rate 89 AXIS IA 234 P 61 QRSd 90 QRS 88 QT 394 T 47 QTc 480 Conclusion Sinus rhythm...normal P axis, V-rate 60- 99 Ventricular bigeminy...bigeminy string>4 w/ V complexes Prolonged IA interval...IA >220, V-rate 50- 90 ST elevation, consider lateral injury...ST >0.10mV, I aVL V5 V6 Mild ST segment elevation in V6. No ST segment depressions beyond mild depression in V3.
--- NOTE | 2024-11-29 09:51 | ED.GENADUL_ITS ---
Discharge Plan Disposition Patient Disposition: Transfer-Acute Inpatient Care Specific Acute Inpt Facility: [facility] Condition: Stable Discharge Details Chief Complaint: Chest Pain Clinical Impression: Acute non-ST elevation myocardial infarction (NSTEMI) Primary Care Provider: Nixon Adrian ED Provider: Veronica Boles Home Meds and New Rx's Prescriptions: No Action losartan 50 mg tablet 50 mg PO DAILY Qty: 90 3RF HPI General Date/Time Provider Initiated Documentation: 11/29/24 09:32 . Limitations to Documentation: no limitations . Information obtained by: patient, family () and RN notes reviewed . History of Present Illness 79 year old M presents to the emergency department with the chief complaint of chest discomfort, described as mild, Quality is described as aching, and is localized to the chest. Patient extremity (LUE). Patient started experiencing this hour(s) (0300) and it has been constant (largely resolved, rates pain at a 1/10 currently). No relieving factors improve symptom(s), No exacerbating factors reported (not worsened with movement or exertion) . Patient notes chest pain and other (feels tired); denies confusion, cough, diaphoresis, fever/chills, headaches, loss of appetite, nausea/vomiting, rash, shortness of breath and syncope. Patient did receive the following treatments prior to arrival, none Related Data Home Medications ?Medication ?Instructions ?Recorded ?Confirmed losartan 50 mg tablet 50 mg PO DAILY #90 tabs 08/31/24 11/29/24 Previous Rx's ?Medication ?Instructions ?Recorded losartan 50 mg tablet 50 mg PO DAILY #90 tabs 08/31/24 Allergies Allergy/AdvReac Type Severity Reaction Status Date / Time No Known Allergies Allergy Verified 11/29/24 09:48 General Stated Complaint: Chest Pain LORETTA: 2 Review of Systems Constitutional Constitutional: Reports as per HPI, Denies chills, Denies fever(s), Denies headache(s) and Denies poor appetite Eyes Eyes: Denies change in vision ENT Ears, Nose, Mouth, and Throat: Denies dizziness and Denies headache(s) Cardiovascular Cardiovascular: Reports as per HPI, Denies dyspnea and Denies dyspnea on exertion Respiratory Respiratory: Reports as per HPI, Denies chest congestion, Denies cough, Denies pain on inspiration, Denies dyspnea and Denies dyspnea on exertion Gastrointestinal Gastrointestinal: Reports as per HPI, Denies abdominal pain, Denies diarrhea, Denies nausea and Denies vomiting Genitourinary Genitourinary: Denies system reviewed and no additional complaints, except as documented (denies change in urinary habits) Musculoskeletal Musculoskeletal: Reports as per HPI and Denies back pain Integumentary/Breasts Skin/Breast: Reports as per HPI and Denies rash Neurologic Neurologic: Reports as per HPI, Denies dizziness and Denies headache(s) Exam Const General: cooperative, healthy appearing, comfortable, no acute distress and well developed Nutritional Appearance: average body habitus and well nourished Orientation: alert, awake and oriented x3 [facility] Head: normal to inspection Ears: hearing grossly normal bilaterally Mouth: moist mucous membranes Chest Chest: normal inspection of the chest, normal palpation of entire chest wall and no crepitus Resp Effort & Inspection: normal respiratory effort, able to speak in complete sentences and no respiratory distress Auscultation: clear to auscultation bilaterally, no rales, no rhonchi and no wheezes Cardio Rate: regular rate Rhythm: abnormal rhythm regularly irregular Heart Sounds: S1 normal and S2 normal GI Inspection: normal to inspection, no edema and non-distended Palpation: soft, no hepatosplenomegaly, not firm, no guarding, not rigid and nontender Skin General skin exam: no rashes or lesions noted Trauma: no lacerations or abrasions Neuro General: patient alert, patient awake and patient oriented x3 Cognition: normal cognition Speech: speech normal Gait: normal gait Extrem General: normal to inspection, capillary refill normal, no calf tenderness, normal gait and edema Laterality: bilateral (1+ pitting edema) Course Vital Signs Vital signs: Vital Signs Temperature 36.4 C 11/29/24 09:35 Pulse 90 11/29/24 09:35 Respiratory Rate 23 11/29/24 09:35 Blood Pressure 221/118 H 11/29/24 09:35 Pulse Oximetry 96 11/29/24 09:35 Temperature 36.4 C 11/29/24 09:35 Temperature Source Tympanic 11/29/24 09:35 Pulse 90 11/29/24 09:35 Respiratory Rate 23 11/29/24 09:35 Blood Pressure 221/118 H 11/29/24 09:35 Blood Pressure Position Sitting 11/29/24 09:35 Pulse Oximetry 96 11/29/24 09:35 Oxygen Delivery Method Room Air 11/29/24 09:35 Oxygen Flow Rate 0 11/29/24 09:35 Pain Level 2 11/29/24 09:35 Medical Decision Making The patient is a pleasant 79-year-old gentleman with past medical history significant for hypertension, sleep apnea, vasomotor rhinitis, presenting with c/c of CP that began at 0300, waking him from sleep. Patient reports he has had 1 other such episode at the beginning of the month that woke him from sleep while he was napping midday. He reports that today he woke up with chest pain that felt like pressure and radiated into the left arm. He denies any nausea or vomiting. Denies any pain radiating to the back. States that when the pain overall has improved, it has persisted and continues to have some discomfort currently. Denies any history of cardiac illness but has been treating his elevated blood pressure for years. He did not take his antihypertensive this morning. Patient was initially seen in urgent care and then was advised to come to emergency department. On exam, patient appears nontoxic. Resting comfortably no acute distress. He reports he does have some very mild chest discomfort. Patient is notably hypertensive with a blood pressure of 221/118. Patient does have frequent PACs that seem to be a irregularly irregular pattern at the time of cardiac auscultation. He has 2+ distal pulses in all extremities. He has a small sophy unt of lower extremity edema, patient reports that his ankle does have some chronic swelling associated with prior surgery. She has no calf pain. No abdominal pain or palpable mass, no pulsatile areas. Concern for potential ACS. However, insisting that this is all nonexertional. He denies the discomfort increasing at all when he walked in from the parking lot. He has not been experiencing any palpitations. No shortness of breath. Reports this came on suddenly as it did when he woke up from napping. He is are both quite active and he has not had any exertional symptoms. Also considered other etiology such as acid reflux, infectious etiology, arrhythmia, dissection. ECG was obtained, [address] mm elevation of the ST segment in V6 per Dr. Morales. Will continue to monitor. Patient given nitroglycerin to help with his recurrent discomfort. Reviewed the CXR, patient has abnormalities and no previous for comparison. He denies nay previous pulmonary diseases, no previous exposures that would cause these findings. He does report unintentional weight loss in recent months, considfered cancer. Will obtain further plxm0feb for his chest. He reports that pain is gone after PO [place] [address]. Repeat ECG obtained, elevations are improved. Patient also has elevation of AST which is new, BNP is 1938, no prior for comparison. After seeing the elevation and considering the two episode of sudden onset CP, not associated with activity, considered dissection. Will obtain CTA thorax for further evaluation. As this is on ddx, holding off on Heparin. He did receive ASA on presentation. If ruled out, will give heparin and speak with cardiology at [facility]. Will begin on Nitro drip for his HTN CXR reviewed by radiologist: IMPRESSION: Bilateral interstitial lung pattern suspicious for pulmonary edema despite upper normal limits heart size. Cannot exclude infectious etiology. There are no pleural effusions. CT reviewed by radiologist IMPRESSION: 1. There is enlargement of the ascending thoracic aorta diameter 4.5 cm. Aortic arch is also slightly prominent diameter. There is no evidence of aortic dissection. No evidence of significant aneurysmal dilatation nor dissection of the abdominal aorta and iliac arteries. Left vertebral artery is noted to be diminutive. 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 2. Mild cardiomegaly. No pericardial effusion 3. Small bilateral pleural effusions and lung findings consistent with probable pulmonary edema, as also evident on chest x-ray earlier today. 4. Nonobstructive calculi in the left kidney measuring up to 5 mm. No hydronephrosis. 5. In addition to a benign cyst in the right kidney, there is an area of abnormal enhancement in the medial aspect of the lower pole of the right kidney measuring approximately 2.5 x 2.0 cm. This does not alter the contour of the kidney but nevertheless cannot exclude a solid renal mass at this level. 6. Sigmoid diverticulosis without obvious diverticulitis. Called [facility] , they are currently listed for tomorrow. Have requested consultation with cardiology. I believe patient needs to go [facility] despite impro aries ST elevations No dissection noted on CT, starting heparin. Giving lasix. Repeat troponin 78493. Spoke with cardiology FIELD SERVICES DIRECTOR at [facility]. accepts him to , will arrange for transport as soon as bed is available. Recommended holding on Clopidogrel for now. did advise Atorvastatin. Accepting is Dr. Harris Discussed with patient family. Sending to [facility] for ACS. While here, on nitro drip, heparin drip, received ASA, lasix and atorvastatin. BP coming down but still hypertensive. Has been asymptomatic since initial treatment of pain. Quality:[facility] Health Related Social Needs: No Data to Display PFSH All Active Problems (Updated 11/29/24 @ 15:46 by IRISH Grossman) Acute non-ST elevation myocardial infarction (NSTEMI) (Acute) Stage 3a chronic kidney disease (Acute) History of excessive cerumen (Acute) COVID-19 (Acute ~02/14/22) History of total right hip replacement (Acute 01/06/22) Vasomotor rhinitis (Acute) Calculus of left kidney (Acute) Bone spur (Acute 05/03/13) FIRST TOE Depressive disorder (Acute 08/15/13) seasonal affective disorder Elevated BP without diagnosis of hypertension (Acute 10/07/16) History of tobacco use (Acute) Osteoarthritis of left thumb (Acute 10/07/16) Sleep disorder (Acute 01/28/16) Tubular adenoma of colon (Acute 11/15/16) HTN (hypertension) (Chronic) Well adult (Acute) Trigger finger of right hand (Acute) little finger Knee pain, right anterior (Acute) Impacted cerumen of right ear (Acute) Primary osteoarthritis of right knee (Acute) Phlebitis and thrombophlebitis (Acute) Left nephrolithiasis (Acute) Medical History Depressive disorder Calculus of left kidney Surgical History History of ankle fusion (R) History of total left hip replacement (10/31/07) [facility] [place] Primary osteoarthritis of right ankle [place] Ankle Fusion 2016 Repair of inguinal hernia (~2000) B/L Colonoscopy - IV Sedation (11/15/16) BONE SPURS (FEET) (~1979) great toes bilateral - Dr. Munroe Family History Mother , 87 No problems noted. Father , 85 Alzheimer's disease Sister Asthma Brother , 66 Parkinson's disease Brother CAD (coronary artery disease) Asthma Son No problems noted. Daughter No problems noted. Social History Smoking/Tobacco Use Status: Former Tobacco Use tobacco type: cigarettes, pipe and cigars Quit Date: 02/03/90 Tobacco: How many years used: 12 Second Hand Exposure: Yes Smoking risk assessment performed?: Yes Alcohol Intake: current Alcohol Intake frequency: 0-2 drinks per day Alcohol type: beer and hard liquor Substance use type: does not use Counseling given: No Details: States has used marijuana once Caregiver/Support person: No Household members: spouse Housing: house Communication Needs: None Do you need help understanding health information?: Never Pets and animals: No Sexually active: Yes Do you think of yourself as: straight/heterosexual Current gender identity: male What is your relationship status?: How often do you talk on the phone with friends or family?: three or more times per week Panel score (0-1 are the most socially isolated patients): 2 What type of physical activity do you participate in: walking, bicycling and weight lifting Duration: 60-90 minutes/day Frequency: 5-6 times per week Ayesha/Taoism: No preference Special ayesha needs: No Seatbelt use: always Helmet use: Yes Helmet use: always Drive intox or ride w/intox 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 supervisor: No Do you feel safe at home: Yes Do you feel safe in your relationship?: Yes Additional Social history: unable to assess privately PAWSS Have you Been Recently Intoxicated or Drunk Within the Last 30 days?: No Have you Ever Experienced Previous Episodes of Alcohol Withdrawal?: No Have you ever Experienced Withdrawal Seizures?: No Have you ever Experienced Delirium Tremens(DT)s?: No Have you ever undergone Alcohol Rehabilitation Treatment (i.e, inpt ot outpatient treatment programs)?: No Have you ever Experienced Blackouts?: No Have you ever Combined Alcohol with other Downers within the last 90 days?: No Have you ever Combined Alcohol with any other Substance of Abuse during the last 90 days?: No Result: 0
[2024-11-29 10:01] LABS: Abs Immature Grans 0.02 10^3/uL (0.0-0.06); Absolute Basophil Count 0.03 10^3/uL (0.0-0.2); Absolute Eosinophil Count 0.01 10^3/uL (0.0-0.7); Absolute Lymphocyte Count 0.47 10^3/uL (1.2-3.4); Absolute Monocyte Count 0.39 10^3/uL (0.1-0.8); Absolute Neutrophil Count 8.27 10^3/uL (1.2-6.7); Basophils % 0.3 %; Eosinophils % 0.1 %; HCT 43.3 % (40.0-50.0); HGB 14.4 g/dL (13.5-17.5); Immature Grans % 0.2 %; Lymphocytes % 5.1 %; MCH 27.6 pg (27.0-33.0); MCHC 33.3 % (32.0-36.0); MCV 83 fL (80-95); MPV 10.6 fL (8.0-11.0); Monocytes % 4.2 %; Neutrophils % 90.1 %; Platelet Count 250 10^3/uL (130-400); RBC 5.21 10^6/uL (4.36-5.78); RDW 14.5 % (11.8-14.1); RDW-SD 43.5 fL; WBC 9.19 10^3/uL (4.4-10.8)
[2024-11-29] MEDS: Aspirin 81 MG CHEW 324 MG CH (10:02)
[2024-11-29] MEDS: Losartan 25 MG TAB 50 MG PO (10:02)
--- NOTE | 2024-11-29 10:23 | DI.RAD_ITS ---
Exam(s) XR CHEST 2V PA LATERAL EXAM: XR CHEST 2V PA LATERAL CLINICAL HISTORY: Chest pain. TECHNIQUE: 2D digital imaging was performed. COMPARISON: CT CT RENAL COLIC WO from 06/16/2021 FINDINGS: 2 views: Heart size is upper normal. The mediastinum is not widened. There is bilateral interstitial pattern including bilateral Deepti B lines. Suspicious for interstit ial pulmonary edema. Also some confluent infiltrate in the lower right lung. There are no pleural e ffusions. IMPRESSION: Bilateral interstitial lung pattern suspicious for pulmonary edema despite upper normal limits heart size. Cannot exclude infectious etiology. There are no pleural effusions. DATA REPOSITORY: RADIATION DOSE DELIVERED:
[2024-11-29 10:27] LABS: Albumin 3.8 g/dL (3.4-5.0); Alkaline Phosphatase 69 U/L (46-116); BUN 21 mg/dL (7-18); Bilirubin, Total 1.1 mg/dL (0.2-1.0); CREATININE 1.2 mg/dL (0.70-1.30); Calcium 9.3 mg/dL (8.5-10.1); Estimated GFR 60.75 (mL/min/1.73m2); Glucose 135 mg/dL (74-106); Total Protein 7.7 g/dL (6.4-8.2)
[2024-11-29 10:28] LABS: ALT 68 U/L (16-63); AST 126 U/L (15-37); Anion Gap 11.6 mmol/L (3-11); CO2 24.4 mmol/L (21.0-32.0); Chloride 105 mmol/L (98-107); Magnesium 1.9 mg/dL; NT-proBNP 1938 pg/mL (<300); Sodium 141 mmol/L (136-145)
[2024-11-29 10:29] LABS: Troponin I 16837 ng/L (<or=76)
--- NOTE | 2024-11-29 10:30 | RT.EKG_ITS ---
APPROVED REPORT Exam: Resting ECG Reason for Exam: repeat in setting of CP Patient Location: E HR:83 bpm ECG Measurements Heart Rate 83 AXIS DE 247 P 60 QRSd 93 QRS 86 QT 404 T 55 QTc 467 Conclusion Sinus rhythm...normal P axis, V-rate 60- 99 Multiple ventricular premature complexes...V complexes w/ short R-R intervls Prolonged DE interval...DE >220, V-rate 50- 90 No STEMI
[2024-11-29] MEDS: Omnipaque 350 MG/ML 100 ML BTL IJ (10:44)
[2024-11-29] MEDS: Normal Saline - Diluent 50 ML VIAL IJ (10:44)
--- NOTE | 2024-11-29 10:55 | DI.CT_ITS ---
Exam(s) CT THORAX ABD/PEL CTA EXAM: CT THORAX ABD/PEL CTA CLINICAL HISTORY: CP, HTN,. TECHNIQUE: Imaging Protocol: Axial computed tomography images with coronal and sagittal reformatted images were created and reviewed CONTRAST MATERIAL: Intravenous: Omnipaque 350 Contrast volume:100 ml Oral: None COMPARISON: CT CT RENAL COLIC WO from 06/16/2021 CR XR CHEST 2V PA LATERAL from 11/29/2024 FINDINGS: CHEST: AORTA: The ascending thoracic aorta is enlarged, exhibiting diameter 4.5 cm. The diameter of the mid aortic arch is 3.5 cm, also prominent. The diameter of the descending thoracic aorta is 2.8 cm. In cidentally noted is an aberrant right subclavian artery as the distal most vessel off the aortic arch . The visualized left vertebral artery is noted to be diminutive. Right vertebral artery is dominan t. No evidence of dissection or penetrating aortic ulcer in the descending thoracic aorta. The abdomina l aorta diameter is upper normal. The common iliac arteries exhibit mild symmetrical arterial megaly but without significant focal aneurysms nor dissection and there is no significant stenosis at the a ortic bifurcation nor at the junction of the common and external iliac arteries nor within the piano instructor al iliac arteries nor within the internal iliac arteries. Both common femoral arteries appear unrema rkable. Celiac artery is patent as is the superior mesenteric artery. Inferior mesenteric artery is patent. There is some plaque evident at the origin of the renal arteries but there does not appear to be hig h-grade stenosis. No fibromuscular dysplasia of the renal arteries. LUNGS: Small bilateral pleural effusions of almost equal size are noted and increased markings throug hout both lung [place] consistent with what is seen on chest x-ray earlier same date and probably rela danielle to pulmonary edema.. MEDIASTINUM: There is no hilar nor mediastinal adenopathy. Visualized thyroid unremarkable. CARDIAC: Mild cardiomegaly. No pericardial effusion. ABDOMEN: There is no ascites. LIVER: There are few small cysts in the liver located anteriorly in both lobes. Difficult to assess accurately on an arterial only phase study as in this case. There are no dilated intrahepatic ducts. GALLBLADDER/BILIARY: No obvious gallbladder pathology. CBD is not dilated. PANCREAS: No evidence of pancreatic mass nor dilatation of the pancreatic duct. SPLEEN: Spleen is not enlarged. There are no intrasplenic lesions. Splenic and portal veins are fish nt. ADRENALS: There are no significant adrenal masses. KIDNEYS: There is a benign cyst in the superior pole of the right kidney which measures 4.5 x 4.9 cm. This does not require follow-up. There are few nonobstructive calculi in the lower pole of the lef t kidney measuring up to 5 mm size no hydronephrosis. No solid mass in left kidney. In the inferior pole of the right kidney there is an area of abnormal decreased enhancement measuring 2 x 2.5 cm, po ssibly significant. There are no radiopaque calculi seen in the right kidney.. ABDOMINAL AORTA: The abdominal aorta is not enlarged. LYMPH NODES: There is no retroperitoneal nor para-aortic adenopathy. No obvious mesenteric masses. ABDOMINAL WALL: Hernia mesh. No evidence of significant anterior abdominal wall hernia. GI: There is no evidence of bowel obstruction, free air, nor abscess. PELVIS: LYMPH NODES: There is no intrapelvic nor inguinal adenopathy. GI: No evidence of appendicitis.Extensive sigmoid diverticulosis. No obvious acute diverticulitis, r ealizing that some the sigmoid is obscured by beam hardening artifact from bilateral hip prostheses. URINARY BLADDER: Obscured by beam hardening artifact. REPRODUCTIVE: Obscured by beam hardening artifact. OSSEOUS: Bilateral hip prostheses. No fractures nor significant osseous lesions. Multilevel degenerative disc disease in lumbar spine. No listhesis evident. IMPRESSION: 1. There is enlargement of the ascending thoracic aorta diameter 4.5 cm. Aortic arch is also slightl y prominent diameter. There is no evidence of aortic dissection. No evidence of significant aneurys mal dilatation nor dissection of the abdominal aorta and iliac arteries. Left vertebral artery is no danielle to be diminutive. 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 2. Mild cardiomegaly. No pericardial effusion 3. Small bilateral pleural effusions and lung findings consistent with probable pulmonary edema, as a lso evident on chest x-ray earlier today. 4. Nonobstructive calculi in the left kidney measuring up to 5 mm. No hydronephrosis. 5. In addition to a benign cyst in the right kidney, there is an area of abnormal enhancement in the medial aspect of the lower pole of the right kidney measuring approximately 2.5 x 2.0 cm. This does not alter the contour of the kidney but nevertheless cannot exclude a solid renal mass at this level . 6. Sigmoid diverticulosis without obvious diverticulitis. There are bilateral hip prostheses. Discussed by phone with ER physician RADIATION DOSE DELIVERED: 806.82mGy.cm Total DLP DATA REPOSITORY: All CT scans at this facility are submitted to the National Radiology Data Registry (NRDR) Dose Index Registry (DIR) with the [employer] (ACR). RADIATION OPTIMIZATION: All CT scans at this facility use at least one of these dose optimization te chniques: automated exposure control; mA and/or kV adjustment per patient size (includes targeted exa ms where dose is matched to clinical indication); or iterative reconstruction.
[2024-11-29] MEDS: nitroGLYcerin in D5W 50 MG/250 ML BTL IV (11:07)
--- NOTE | 2024-11-29 11:24 | ED.PROG_ITS ---
Date of service: 11/29/24 Time of Service: 16:48 Medical Decision Making This patient was in the emergency department with a history of hypertension. He was having chest pain this morning associated with some shortness of breath. He had signs of volume overload and a reduced EF on bedside echocardiogram. He has a high risk NSTEMI he did have some subtle ST segment elevation on his initial ECG and lead V6. No ST segment depressions. His initial troponin was greater than 16,000. [place] [facility] [place]. He underwent a CT to assess for dissection. 11:30 AM I spoke with Dr. Dinero from radiology who reported that the patient had no dissection. I ordered him 40 mg of IV furosemide and oral potassium in hopes of coming down on his nitroglycerin drip. He is not having any respiratory distress so I do not feel that he requires emergent BiPAP. Quality:SDOH Health Related Social Needs: No Data to Display Discharge Plan Disposition Patient Disposition: Transfer-Acute Inpatient Care Specific Acute Inpt Facility: [facility] Condition: Stable Discharge Details Clinical Impression: Acute non-ST elevation myocardial infarction (NSTEMI) Primary Care Provider: Nixon Adrian ED Provider: Veronica Boles Home Meds and New Rx's Prescriptions: No Action losartan 50 mg tablet 50 mg PO DAILY Qty: 90 3RF Discharge Data Discharge Date/Time-TO BE ENTERED AT DEPARTURE: 11/29/24 13:49 POCUS Exam (ED) Limited Cardiac Exam DATE OF EXAM: 11/29/24 TIME OF EXAM: 11:24 PROVIDER THAT PERFORMED THE STUDY: Sulaiman Hoffman IS THIS A REPEAT EXAM DURING THIS ENCOUNTER: no REASON FOR EXAM: Chest pain VISUALIZED STRUCTURES: Four Chambers, Left ventricle and LVOT VIEW OBTAINED: Apical 4-Chamber, Parasternal long-axis and Subxiphoid PERTINENT FINDINGS/IMPRESSION: No pericardial effusion and No RV dilation DIFFERENTIAL DIAGNOSES: Aortic outflow track less than 4 cm, moderate squeeze, RV less than LV, no significant pericardial effusion. Bilateral B-lines. Exam complete
--- NOTE | 2024-11-29 11:30 | RT.EKG_ITS ---
APPROVED REPORT Exam: Resting ECG Reason for Exam: chest pain Patient Location: E HR:83 bpm ECG Measurements Heart Rate 83 AXIS LA 258 P 67 QRSd 93 QRS 87 QT 412 T 52 QTc 483 Conclusion Sinus rhythm...normal P axis, V-rate 60- 99 Prolonged LA interval...LA >220, V-rate 50- 90 No STEMI
[2024-11-29 11:38] LABS: Troponin I 22426 ng/L (<or=76)
[2024-11-29] MEDS: Heparin in 0.45% NaCl 25,000 UNIT/250 ML BAG 10 UNIT IVINF (11:45)
[2024-11-29] MEDS: Furosemide 40 MG/4 ML VIAL IVP (11:47)
[2024-11-29] MEDS: Potassium Bicarbonate/Cit AC 25 MEQ TABLET.EFF 50 MEQ PO (11:47)
[2024-11-29] MEDS: Lidocaine 2% Jelly 6 ML SYR (12:06)
[2024-11-29] MEDS: Atorvastatin 40 MG TAB PO (12:20)
[2024-11-29 12:35] LABS: COVID-19 PCR Negative (Negative); Influenza A PCR Negative (Negative); Influenza B PCR Negative (Negative); RSV PCR Negative (Negative)
[2024-11-29 12:36] LABS: Source Nasopharynx
== END 2024-11-29 13:49 | disposition short-term general hospital (02) ==
PROVIDERS: Emergency Provider Physician Assistant; PCP Family Medicine
DX: I21.4 Non-ST elevation (NSTEMI) myocardial infarction (principal); I12.9 Hypertensive chronic kidney disease with stage 1 through stage 4 chronic kidney disease, or unspecified chronic kidney disease; N18.31 Chronic kidney disease, stage 3a; Z87.891 Personal history of nicotine dependence
CPT/HCPCS: 00123; 36415; 71275; 80053; 87637; 93005; 93308; 99285; 71046; 74174; 83735; 83880; 84484; 85025; 93010; J1644; J1940; J2305; J3490

== ENCOUNTER 2024-12-06 06:37 | Emergency (ER) | payer MEDICARE, SELFPAY ==
[2024-12-06] VITALS (15 sets, daily range): BP systolic 134–197; BP diastolic 82–110; PULSE 67–83; RESP 14–29; TEMP 36.8; O2SAT 93–97
--- NOTE | 2024-12-06 06:30 | RT.EKG_ITS ---
APPROVED REPORT Exam: Resting ECG Reason for Exam: chest tightness Patient Location: E HR:83 bpm ECG Measurements Heart Rate 83 AXIS ND [id number] P [id number] QRSd 95 QRS 87 QT 388 T 41 QTc 457 Conclusion Atrial fibrillation...V-rate 63-107, irreg A-activity Ventricular premature complex...V complex w/ short R-R interval ST elevations I, II, V5, V6 concerning for ischemia
--- NOTE | 2024-12-06 06:45 | RT.EKG_ITS ---
APPROVED REPORT Exam: Resting ECG Reason for Exam: Chest Pain Patient Location: E HR:78 bpm ECG Measurements Heart Rate 78 AXIS AL [id number] P [id number] QRSd 95 QRS 85 QT 380 T 32 QTc 432 Conclusion Atrial fibrillation...V-rate 62- 87, irreg A-activity
[2024-12-06] MEDS: Aspirin 81 MG CHEW 324 MG CH (07:05)
[2024-12-06 07:06] LABS: Abs Immature Grans 0.05 10^3/uL (0.0-0.06); Absolute Basophil Count 0.06 10^3/uL (0.0-0.2); Absolute Eosinophil Count 0.19 10^3/uL (0.0-0.7); Absolute Lymphocyte Count 1.13 10^3/uL (1.2-3.4); Absolute Monocyte Count 1.23 10^3/uL (0.1-0.8); Absolute Neutrophil Count 8.12 10^3/uL (1.2-6.7); Basophils % 0.6 %; Eosinophils % 1.8 %; HCT 37.6 % (40.0-50.0); HGB 12.2 g/dL (13.5-17.5); Immature Grans % 0.5 %; Lymphocytes % 10.5 %; MCH 27.4 pg (27.0-33.0); MCHC 32.4 % (32.0-36.0); MCV 84 fL (80-95); MPV 11.7 fL (8.0-11.0); Monocytes % 11.4 %; Neutrophils % 75.2 %; Platelet Count 232 10^3/uL (130-400); RBC 4.46 10^6/uL (4.36-5.78); RDW-SD 43.2 fL; WBC 10.78 10^3/uL (4.4-10.8)
--- NOTE | 2024-12-06 07:07 | ED.GENADUL_ITS ---
Discharge Plan Disposition Patient Disposition: Transfer-Acute Inpatient Care Specific Acute Inpt Facility: [facility] Condition: Critical Discharge Details Clinical Impression: Chest pain, Myocardial infarct, Coronary artery dissection Primary Care Provider: Nixon Adrian ED Provider: Sharla Onofre Home Meds and New Rx's Prescriptions: No Action aspirin 81 mg tablet,delayed release (DR/EC) 81 mg PO DAILY atorvastatin 80 mg tablet 80 mg PO DAILY clopidogrel [Plavix] 75 mg tablet 75 mg PO DAILY metoprolol succinate 100 mg tablet extended release 24 hr 100 mg PO DAILY spironolactone 25 mg tablet 25 mg PO DAILY nitroglycerin 0.4 mg tablet, sublingual 0.4 mg sublingual Q5M PRN Rx Instructions: do not exceed 3 doses per episode losartan 25 mg tablet 75 mg PO DAILY HPI General Mode of arrival: ambulatory . Date/Time Provider Initiated Documentation: 12/06/24 06:41 . Limitations to Documentation: no limitations . Information obtained by: patient . HPI Narrative: 79yo M with hx CAD, [place] [facility] [place] discharged on 12/03 presenting for chest pain. Early this morning around [id number] had substernal chest pressure. Dull, non-radiating, moderate. Pain resolved by approximately 0600. At 0630 he decided to take nitroglycerin (despite not having any pain at the time) after which he presented to the ED. He remains chest pain free at this time. He reports that overnight he spat up a lot of blood; he is unsure if was vomiting or sputum (he thinks more likely vomiting). This has never happened before. No shortness of breath at any point. Reports that [place] [facility] [place] had a dissection and was on a balloon pump and did not have any stents placed. He is otherwise in his usual state of health with no fevers, chills, rash, nausea, abdominal pain, bloody stool, or other concerns. Related Data Home Medications ?Medication ?Instructions ?Recorded ?Confirmed aspirin 81 mg tablet,delayed 81 mg PO DAILY 12/04/24 12/06/24 release atorvastatin 80 mg tablet 80 mg PO DAILY 12/04/24 12/06/24 clopidogrel 75 mg tablet (Plavix) 75 mg PO DAILY 12/04/24 12/06/24 losartan 25 mg tablet 75 mg PO DAILY 12/04/24 12/06/24 metoprolol succinate 100 mg 100 mg PO DAILY 12/04/24 12/06/24 tablet,extended release 24 hr nitroglycerin 0.4 mg sublingual 0.4 mg sublingual Q5M PRN 12/04/24 12/06/24 tablet spironolactone 25 mg tablet 25 mg PO DAILY 12/04/24 12/06/24 Allergies Allergy/AdvReac Type Severity Reaction Status Date / Time No Known Allergies Allergy Verified 12/06/24 06:53 General Stated Complaint: Chest Pain LORETTA: 2 Review of Systems Narrative: see HPI Exam Narrative Exam Narrative: General: Alert, well appearing, well nourished, in no acute distress. Head: Normocephalic, atraumatic Neck: Trachea midline, ?Neck supple. ENT: ?MMM.? No oropharygeal lesions or exudate. No evident bleeding. Cardiac: ?Irregular, no murmurs appreciated Resp: No respiratory distress. CTAB. Abd: ?Soft, non-distended, nontender Extremities: ?No deformities.? No peripheral edema. Neurologic: GCS 15. ? Moves all extremities freely against gravity Course Vital Signs Vital signs: Vital Signs Temperature 36.8 C 12/06/24 06:41 Pulse 82 12/06/24 06:41 Respiratory Rate 18 12/06/24 06:41 Blood Pressure 197/110 H 12/06/24 06:41 Pulse Oximetry 97 12/06/24 06:41 Temperature 36.8 C 12/06/24 06:41 Temperature Source Temporal Artery Scan 12/06/24 06:41 Pulse 82 12/06/24 06:41 Respiratory Rate 19 12/06/24 06:46 Respiratory Effort Normal, Non-Labored 12/06/24 06:46 Respiratory Depth Normal 12/06/24 06:46 Respiratory Pattern Normal 12/06/24 06:46 Blood Pressure 197/110 H 12/06/24 06:41 Pulse Oximetry 97 12/06/24 06:41 Oxygen Delivery Method Room Air 12/06/24 06:41 Oxygen Flow Rate 0 12/06/24 06:41 Pain Level 0 12/06/24 06:41 Medical Decision Making 79yo M with hx CAD, [place] [facility] [place]STEMI discharged on 12/03 presenting for chest pain. Onset ~0300, resolved without intervention by ~0600; took nitro at 0630 (pain free at that time) and pain-free upon arrival to the ED. Reports that [place] [facility] [place] a dissection and was on a balloon pump and did not have any stents placed. Hypertensive on arrival, vital signs otherwise reassuring. EKG concerning with slight ST elevations I & AVL as well as V5 & V6, depressions V2 & V3. Considered lytics however multiple concerns- hx recent 'dissection' (unclear location), questionable hemetemesis. Patient is also chest pain free at this time. Will contact [facility] [place] to get more information about pt's history there. Ordered IV metoprool for hypertension howver patient repeat vital signs improving and so dose was held. Spoke wtih Dr. 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 Advised NO lytics, starting heparin drip. Accepted to [facility]. [place]. Requested posterior EKG which was done and sent; slight elevations V7-V9 concerning for posterior NH on my view. Transfer center re-contacted to discuss findings. Labs reviewed as below, CBC with mild anemia Hg 12.2, CMP with normal electrolytes, newly elevated Cr at 1.5 from normal baseline, BNP elevated at ~4500 (patient not clinically in heart failure with no edema or respiratory distress), initial troponin 4949 (per Dr. Sandoval trop[place] at [facility] [place] ~7000 with their upper limit of normal 25 and so he finds this value somewhat reassuring), lipase normal. On reassessment patient remains chest pain free, hypertension improved and vital signs reassuring. CTA independently reviewed (partial imaging uploaded on my view) with no glaring aortic dissection or large saddle pulmonary embolus. Radiology read pending. [facility] at bedside for transport. Discussed again with Dr. Sandoval who reviewed posterior EKG; advised continuing with heparin drip, NO lytics at this time. Patient transferred via [facility] with CC RN. He remained hemodynamically stable and chest pain free throughout his time in the ED. Lab Data Lab results reviewed: Yes I reviewed the patient's lab results. Labs: Laboratory Tests Range/Units 12/06/24 12/06/24 06:50 07:08 WBC (4.4-10.8) 10^3/uL 10.78 RBC (4.36-5.78) 10^6/uL 4.46 Hgb (13.5-17.5) g/dL 12.2 L Hct (40.0-50.0) % 37.6 L MCV (80-95) fL 84 MCH (27.0-33.0) pg 27.4 MCHC (32.0-36.0) % 32.4 RDW (11.8-14.1) % 14.0 Plt Count (130-400) 10^3/uL 232 MPV (8.0-11.0) fL 11.7 H Immature Gran % % 0.5 Neutrophils % % 75.2 Lymphocytes % % 10.5 Monocytes % % 11.4 Eosinophils % % 1.8 Basophils % % 0.6 Nucleated RBC % (0.0-0.3) % 0.0 Absolute Neutrophils (1.2-6.7) 10^3/uL 8.12 H Absolute Lymphocytes (1.2-3.4) 10^3/uL 1.13 L Absolute Monocytes (0.1-0.8) 10^3/uL 1.23 H Absolute Eosinophils (0.0-0.7) 10^3/uL 0.19 Absolute Basophils (0.0-0.2) 10^3/uL 0.06 PT (9.1-11.1) sec 11.8 H INR (0.9-1.1) 1.2 H APTT (20.6-30.2) sec 27.4 Sodium (136-145) mmol/L 141 Potassium (3.5-5.1) mmol/L 4.2 Chloride (98-107) mmol/L 104 Carbon Dioxide (21.0-32.0) mmol/L 23.5 Anion Gap (3-11) mmol/L 13.5 H BUN (7-18) mg/dL 34 H Creatinine (0.70-1.30) mg/dL 1.5 H Est GFR (CKD-EPI 2020) (mL/min/1.73m2) 46.48 Glucose (74-106) mg/dL 115 H Calcium (8.5-10.1) mg/dL 9.4 Magnesium mg/dL 1.9 Total Bilirubin (0.2-1.0) mg/dL 0.9 AST (15-37) U/L 49 H ALT (16-63) U/L 83 H Alkaline Phosphatase (46-116) U/L 69 Troponin I (<or=76) ng/L 4949 H* NT-Pro-B Natriuret Pep (<300) pg/mL 4625 H Total Protein (6.4-8.2) g/dL 7.4 Albumin (3.4-5.0) g/dL 3.2 L Lipase (<78) U/L 42 Quality:[facility] Health Related Social Needs: No Data to Display Critical Care Time Critical Care Time Critical Care Time: Yes Total Critical Care Time: 52 Attestation: Due to a high probability of clinically significant, life threatening deterioration, the patient required my highest level of preparedness to intervene emergently and I personally spent this critical care time directly and personally managing the patient. This critical care time included obtaining a history; examining the patient; pulse oximetry; ordering and review of studies; arranging urgent treatment with development of a management plan; evaluation of patient's response to treatment; frequent reassessment; and, discussions with other providers. This critical care time was performed to assess and manage the high probability of imminent, life-threatening deterioration that could result in multi-organ failure. It was exclusive of separately billable procedures and treating other patients? PFSH All Active Problems (Updated 12/06/24 @ 08:07 by Sharla Onofre MD) Coronary artery dissection (Acute) Myocardial infarct (Chronic) Chest pain (Acute) CAD (coronary artery disease) (Chronic) PCI to ramus with dissection, LAD 65% long segment remains RH Normocytic anemia (Acute ~11/2024) Ischemic cardiomyopathy (Acute ~11/2024) EF 32% with acut NSTEMI 11/29/24 [place] [facility] [place] RH PAF (paroxysmal atrial fibrillation) (Acute ~11/2024) Acute non-ST elevation myocardial infarction (NSTEMI) (Acute) 11/29/24 transferred [place] [facility] [place] RH Stage 3a chronic kidney disease (Acute) History of excessive cerumen (Acute) COVID-19 (Acute ~02/14/22) History of total right hip replacement (Acute 01/06/22) Vasomotor rhinitis (Acute) Calculus of left kidney (Acute) Bone spur (Acute 05/03/13) FIRST TOE Depressive disorder (Acute 08/15/13) seasonal affective disorder Elevated BP without diagnosis of hypertension (Acute 10/07/16) History of tobacco use (Acute) Osteoarthritis of left thumb (Acute 10/07/16) Sleep disorder (Acute 01/28/16) Tubular adenoma of colon (Acute 11/15/16) HTN (hypertension) (Chronic) Well adult (Acute) Trigger finger of right hand (Acute) little finger Knee pain, right anterior (Acute) Impacted cerumen of right ear (Acute) Primary osteoarthritis of right knee (Acute) Phlebitis and thrombophlebitis (Acute) Left nephrolithiasis (Acute) Medical History Depressive disorder Calculus of left kidney Surgical History History of ankle fusion (R) History of total left hip replacement (10/31/07) [facility] [place] Primary osteoarthritis of right ankle [place] Ankle Fusion 2016 Repair of inguinal hernia (~2000) B/L Colonoscopy - IV Sedation (11/15/16) BONE SPURS (FEET) (~1979) great toes bilateral - Dr. Munroe Family History Mother , 87 No problems noted. Father , 85 Alzheimer's disease Sister Asthma Brother , 66 Parkinson's disease Brother CAD (coronary artery disease) Asthma Son No problems noted. Daughter No problems noted. Social History Smoking/Tobacco Use Status: Former Tobacco Use tobacco type: cigarettes, pipe and cigars Quit Date: 02/03/90 Tobacco: How many years used: 12 Second Hand Exposure: Yes Smoking risk assessment performed?: Yes Alcohol Intake: current Alcohol Intake frequency: 0-2 drinks per day Alcohol type: beer and hard liquor Substance use type: does not use Counseling given: No Details: States has used marijuana once Caregiver/Support person: No Household members: spouse Housing: house Communication Needs: None Do you need help understanding health information?: Never Pets and animals: No Sexually active: Yes Do you think of yourself as: straight/heterosexual Current gender identity: male What is your relationship status?: How often do you talk on the phone with friends or family?: three or more times per week Panel score (0-1 are the most socially isolated patients): 2 What type of physical activity do you participate in: walking, bicycling and weight lifting Duration: 60-90 minutes/day Frequency: 5-6 times per week Ayesha/Muslim: No preference Special ayesha needs: No Seatbelt use: always Helmet use: Yes Helmet use: always Drive intox or ride w/intox non emergency services ambulance driver: No Do you feel safe at home: Yes Do you feel safe in your relationship?: Yes Additional Social history: unable to assess privately
--- NOTE | 2024-12-06 07:26 | DI.RAD_ITS ---
Exam(s) XR PORTABLE CHEST AP EXAM: XR PORTABLE CHEST AP CLINICAL HISTORY: Chest pain TECHNIQUE: 2D digital imaging was performed of the chest. Images were obtained. PA and lateral v iews were obtained. COMPARISON: CR XR CHEST 2V PA LATERAL from 11/29/2024 FINDINGS: MEDIASTINUM: Normal. HEART: Heart is at the upper limits of normal to mildly enlarged. PULMONARY VASCULATURE: Mild pulmonary venous congestion. LUNGS: Prominent interstitial markings in the lungs particularly the bases. PLEURAL SPACE: There is a small left pleural effusion. No right pleural effusion or pneumothorax. BONE:Within normal limits for the patient's age. OTHER FINDINGS:Normal. IMPRESSION: Findings suspicious for interstitial edema and small pleural effusion. Findings raise a question of fluid overload/congestive heart failure. DATA REPOSITORY: RADIATION DOSE DELIVERED:
[2024-12-06 07:27] LABS: INR 1.2 (0.9-1.1); Prothrombin Time 11.8 sec (9.1-11.1)
--- NOTE | 2024-12-06 07:30 | RT.EKG_ITS ---
APPROVED REPORT Exam: Resting ECG Reason for Exam: chest pain Patient Location: E HR:71 bpm ECG Measurements Heart Rate 71 AXIS OR [id number] P [id number] QRSd 89 QRS 95 QT 391 T -6 QTc 439 Conclusion POSTERIOR EKG Atrial fibrillation...V-rate 59- 84, irreg A-activity slight ST elevations V7-V9 concerning for posterior CA
[2024-12-06 07:31] LABS: ALT 83 U/L (16-63); AST 49 U/L (15-37); Albumin 3.2 g/dL (3.4-5.0); Alkaline Phosphatase 69 U/L (46-116); Anion Gap 13.5 mmol/L (3-11); BUN 34 mg/dL (7-18); Bilirubin, Total 0.9 mg/dL (0.2-1.0); CO2 23.5 mmol/L (21.0-32.0); CREATININE 1.5 mg/dL (0.70-1.30); Calcium 9.4 mg/dL (8.5-10.1); Chloride 104 mmol/L (98-107); Estimated GFR 46.48 (mL/min/1.73m2); Glucose 115 mg/dL (74-106); Lipase 42 U/L (<78); Magnesium 1.9 mg/dL; NT-proBNP 4625 pg/mL (<300); Potassium 4.2 mmol/L (3.5-5.1); Sodium 141 mmol/L (136-145); Total Protein 7.4 g/dL (6.4-8.2)
[2024-12-06 07:34] LABS: Troponin I 4949 ng/L (<or=76)
[2024-12-06] MEDS: Heparin in 0.45% NaCl 25,000 UNIT/250 ML BAG 10 UNIT IVINF (07:37)
--- NOTE | 2024-12-06 07:38 | DI.VRAD_ITS ---
PROCEDURE INFORMATION: Exam: XR Chest Exam date and time: 12/06/2024 7:22 AM Age: 79 years old Clinical indication: Other: Chest pain TECHNIQUE: Imaging protocol: Radiologic exam of the chest. Views: 1 view. COMPARISON: No relevant prior studies are available for comparison. FINDINGS: Lungs: Increased interstitial markings in both lungs suggesting mild edema. Pleural spaces: Suspect left pleural effusion. Heart/Mediastinum: Prominent cardiac silhouette. Bones/joints: No acute abnormality. IMPRESSION: Prominent cardiac silhouette with increased interstitial markings and suspected left pleural effusion. Consider heart failure/fluid overload. Dictated and Authenticated by: Uma Nieves MD. Orderin Kingston Magdaleno MD
[2024-12-06 07:39] LABS: PTT Activated 27.4 sec (20.6-30.2)
[2024-12-06] MEDS: Normal Saline - Diluent 50 ML VIAL IJ (08:08)
[2024-12-06] MEDS: Omnipaque 350 MG/ML 100 ML BTL IJ (08:09)
--- NOTE | 2024-12-06 08:15 | DI.CT_ITS ---
Exam(s) CT THORAX ABD/PEL CTA EXAM: CT THORAX ABD/PEL CTA CLINICAL HISTORY: eval for aortic dissection, pulmonary embolism. TECHNIQUE: Imaging Protocol: Axial CT angiography was performed with multi-slice acquisition and m ulti-planar and/or 3D reconstructions. Lung Computer Aided Detection (CAD) was utilized. CONTRAST MATERIAL: Intravenous: Omnipaque 350 contrast volume:100 mL Oral: No COMPARISON: CT CT RENAL COLIC WO from 06/16/[address] THORAX ABD/PEL CTA from 11/29/2024 FINDINGS: CHEST: Tracheobronchial tree: Patent where visualized. There is no evidence of bronchiectasis. Pulmonary parenchyma: Note is made of an azygos lobe which is a normal variant. There is a 6 mm nodul e in the right lower lobe (series 16, image 98). There are dependent infiltrates seen in the lingula and the lower lobes bilaterally which has slightly progressed since prior examination. Pulmonary Arteries: There are now new filling defects seen in branches of the pulmonary artery to the right middle and right lower lobes and to the left upper, lower and lingular lobes. This was not pre sent on the prior examination. There is no evidence of a saddle embolus. Mediastinum and Fidelina: No dominant adenopathy or fluid collection. The esophagus is unremarkable.There is a tiny hiatal hernia. Visualized thyroid: Unremarkable. Pleura: There is stable bilateral pleural effusions present. There is no pneumothorax. Heart: Cardiomegaly. Coronary artery calcification is present. No pericardial effusion.The RV to LV r atio is less than 1 which is within normal limits. No evidence of right heart strain. Aorta: Thoracic aorta non-dilated. 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 There i s no evidence of dissection. Atherosclerotic calcification is present. Soft Tissues: Unremarkable. Bones: Within normal limits for the patient's age. ABDOMEN AND PELVIS: Abdomen: Celiac axis/mesenteric arteries: No evidence of occlusion or significant stenosis. Renal Arteries: No evidence of occlusion or significant stenosis. Mild atherosclerotic calcification at the origins. Aorta: No evidence of occlusion or significant stenosis. No aneurysm or dissection. Atheroscleroti c calcification is present. Pelvis: Iliac Arteries: No evidence of occlusion or significant stenosis. Atherosclerotic calcification is present. Common Femoral Arteries: No evidence of occlusion or significant stenosis. Atherosclerotic calcific ation is present. ABDOMEN: Liver: Normal density. There are several hepatic cysts. No suspicious hepatic masses are present. Portal, superior mesenteric and splenic veins: Unremarkable. Gallbladder and Biliary Tract: No radiodense calculus or dilation. Pancreas: Normal density, no abnormal calcifications or inflammatory process. Spleen: Normal. Adrenals: No masses seen. Kidneys: Normal size, contour and axis. There is left nephrolithiasis. No obstructive uropathy. The re are simple bilateral renal cysts. The largest is seen in the superior pole of the right kidney an d measures 5.2 x 4.8 cm. No follow-up is recommended. There is again seen an area of decreased enha ncement in the inferior anterior aspect of the right kidney. It measures approximately 2.5 cm. (Ser ies 26, image 35). Differential considerations include renal mass, infarct or infection. Bowel: There is diverticulosis of the colon but no evidence of acute diverticulitis. There is no nohemy dence of bowel wall thickening or obstruction. The stomach is incompletely distended limiting evalua tion. There is no pneumatosis. No portal venous gas is appreciated. No evidence of appendicitis. Peritoneal Cavity: No ascites, collection or mesenteric inflammatory response. No free air. Lymph Nodes: Within normal limits. Bones: Within normal limits for the patient's age. Patient has bilateral hip replacements. Soft Tissues: There again seen findings of prior anterior abdominal wall surgery. PELVIS: Bladder: Symmetric distention, no gross wall thickening. Reproductive Organs: The prostate gland is markedly enlarged. Lymph Nodes: Within normal limits. Bones: Within normal limits for the patient's age. IMPRESSION: 1. Bilateral pulmonary emboli. No evidence of right heart strain. 2. Stable small bilateral pleural effusions and bilateral basilar infiltrates which may represent ate lectasis or pneumonia. 3. Persistent area of decreased attenuation in the anterior inferior aspect of the right kidney. Dif ferential considerations include renal mass, infarct or infection. If clinically indicated, follow-u p examination with renal MRI should be considered. 4. No acute abdominal or pelvic process. 5. No evidence of thoracic or abdominal aortic dissection. 6. Findings were discussed with Dr. Jones at 8:55 a.m. on 12/06/2024. RADIATION DOSE DELIVERED: 738.29mGy.cm Total DLP DATA REPOSITORY: All CT scans at this facility are submitted to the National Radiology Data Registry (NRDR) Dose Index Registry (DIR) with the [employer] (A[employer]). RADIATION OPTIMIZATION: All CT scans at this facility use at least one of these dose optimization te chniques: automated exposure control; mA and/or kV adjustment per patient size (includes targeted exa ms where dose is matched to clinical indication); or iterative reconstruction.
[2024-12-06 08:52] LABS: Troponin I 4331 ng/L (<or=76)
--- NOTE | 2024-12-06 09:20 | ED.FU.B_ITS ---
Follow Up Plan: Patient CT resulted after patient was transferred. I did call [facility] and they are aware of findings of bilateral pulmonary embolus without heart strain. They did receive a copy of the images.
== END 2024-12-06 08:40 | disposition short-term general hospital (02) ==
PROVIDERS: Emergency Provider Student in an Organized Health Care Education/Training Program; PCP Family Medicine
DX: I26.99 Other pulmonary embolism without acute cor pulmonale (principal); I77.71 Dissection of carotid artery; I25.2 Old myocardial infarction; I25.10 Atherosclerotic heart disease of native coronary artery without angina pectoris; I10 Essential (primary) hypertension; Z79.02 Long term (current) use of antithrombotics/antiplatelets; Z79.01 Long term (current) use of anticoagulants
CPT/HCPCS: 36415; 71275; 80053; 83690; 93005; 99285; 71045; 74174; 83735; 83880; 84484; 85025; 85610; 85730; 93010; J1644; J3490

== ENCOUNTER 2024-12-21 10:59 | Outpatient (RCR) | payer MEDICARE, SELFPAY ==
--- NOTE | 2024-12-21 10:45 | RT.EKG_ITS ---
APPROVED REPORT Exam: Resting ECG Reason for Exam: CR Intake Appointment - Baseline EKG Patient Location: O HR:66 bpm ECG Measurements Heart Rate 66 AXIS OK 417 P 73 QRSd 106 QRS 95 QT 464 T 222 QTc 487 Conclusion Sinus rhythm...normal P axis, V-rate 50- 99 Prolonged OK interval...OK >220, V-rate 50- 90 Vertical axis Diffuse T wave abnormalities
== END 2025-01-02 23:59 | disposition home or self-care (01) ==
LOC: CR 10:59
PROVIDERS: PCP Family Medicine; Visit Provider Internal Medicine Cardiovascular Disease
DX: I21.4 Non-ST elevation (NSTEMI) myocardial infarction (principal); Z51.89 Encounter for other specified aftercare; Z95.5 Presence of coronary angioplasty implant and graft
CPT/HCPCS: S9472

== ENCOUNTER 2025-01-02 13:25 | Outpatient (RCR) | payer MEDICARE, SELFPAY | END 2025-01-02 23:59 | disposition home or self-care (01) | LOC: CR 13:25 | PROVIDERS: PCP Family Medicine; Visit Provider Internal Medicine Cardiovascular Disease | DX: I21.4 Non-ST elevation (NSTEMI) myocardial infarction (principal); Z95.5 Presence of coronary angioplasty implant and graft; Z51.89 Encounter for other specified aftercare | CPT/HCPCS: S9472 ==

== ENCOUNTER 2025-01-08 10:24 | Outpatient (CLI) | payer MEDICARE, SELFPAY ==
--- NOTE | 2025-01-08 10:15 | RT.EKG_ITS ---
APPROVED REPORT Exam: Resting ECG Reason for Exam: CAD Patient Location: O HR:62 bpm ECG Measurements Heart Rate 62 AXIS LA 265 P -46 QRSd 99 QRS 67 QT 462 T 156 QTc 470 Conclusion Sinus or ectopic atrial rhythm...P axis (-45,135) Prolonged LA interval...LA >220, V-rate 50- 90 Abnrm T, consider ischemia, anterolateral lds...T <-0.20mV, I aVL V2-V6
== END 2025-01-08 10:25 | disposition home or self-care (01) ==
LOC: DI.CARD 10:24
PROVIDERS: PCP Family Medicine; Visit Provider Internal Medicine Cardiovascular Disease
DX: I48.0 Paroxysmal atrial fibrillation (principal); I25.10 Atherosclerotic heart disease of native coronary artery without angina pectoris
CPT/HCPCS: 93010

== ENCOUNTER → 2025-01-08 12:46 | Outpatient (BNVA) | payer MEDICARE, SELFPAY | PROVIDERS: PCP Family Medicine; Referring Provider Family Medicine; Visit Provider Internal Medicine Cardiovascular Disease | DX: I48.0 Paroxysmal atrial fibrillation (principal); I25.10 Atherosclerotic heart disease of native coronary artery without angina pectoris; I25.5 Ischemic cardiomyopathy | CPT/HCPCS: 93005; 99214 ==

== ENCOUNTER 2025-02-01 13:13 | Outpatient (RCR) | payer MEDICARE, SELFPAY | END 2025-02-02 23:59 | disposition home or self-care (01) | LOC: CR 13:13 | PROVIDERS: PCP Family Medicine; Visit Provider Internal Medicine Cardiovascular Disease | DX: I21.4 Non-ST elevation (NSTEMI) myocardial infarction (principal); Z95.5 Presence of coronary angioplasty implant and graft; Z51.89 Encounter for other specified aftercare | CPT/HCPCS: S9472 ==

== ENCOUNTER 2025-03-04 13:00 | Outpatient (RCR) | payer MEDICARE, SELFPAY | END 2025-03-04 23:59 | disposition home or self-care (01) | LOC: CR 13:00 | PROVIDERS: PCP Family Medicine; Visit Provider Internal Medicine Cardiovascular Disease | DX: I21.4 Non-ST elevation (NSTEMI) myocardial infarction (principal); Z95.5 Presence of coronary angioplasty implant and graft; Z51.89 Encounter for other specified aftercare | CPT/HCPCS: S9472 ==

== ENCOUNTER 2025-03-18 13:00 | Outpatient (RCR) | payer MEDICARE, SELFPAY | END 2025-04-04 23:59 | disposition home or self-care (01) | LOC: CR 13:00 | PROVIDERS: PCP Family Medicine; Visit Provider Internal Medicine Cardiovascular Disease | DX: I21.4 Non-ST elevation (NSTEMI) myocardial infarction (principal); Z51.89 Encounter for other specified aftercare; Z95.5 Presence of coronary angioplasty implant and graft | CPT/HCPCS: S9472 ==

== ENCOUNTER 2025-03-29 13:52 | Emergency (ER) | payer MEDICARE, SELFPAY ==
[2025-03-29 13:57] VITALS: BP 137/79; PULSE 65; RESP 12; TEMP 36.3; O2SAT 97
--- NOTE | 2025-03-29 14:14 | ED.GENADUL_ITS ---
Discharge Plan Disposition Patient Disposition: Home Condition: Good Discharge Details Clinical Impression: Laceration of ankle Primary Care Provider: Nixon Adrian ED Provider: Veronica Boles [place] Meds and New Rx's Prescriptions: Continued atorvastatin 80 mg tablet 80 mg PO DAILY clopidogrel [Plavix] 75 mg tablet 75 mg PO DAILY nitroglycerin 0.4 mg tablet, sublingual 0.4 mg sublingual Q5M PRN Rx Instructions: do not exceed 3 doses per episode Eliquis 5 mg tablet 5 mg PO BID Rx Instructions: take 2 tablets daily for 7 days and then one tab BID carvedilol 6.25 mg tablet 6.25 mg PO BID Rx Instructions: must administer with a meal/food losartan 50 mg tablet 50 mg PO DAILY spironolactone [Aldactone] 25 mg tablet 12.5 mg PO DAILY furosemide [Lasix] 20 mg tablet 20 mg PO PRN Rx Instructions: 12/17/24 Patient only takes this medication PRN with weight gain. -hb diphenhydramine HCl [Benadryl Allergy] 25 mg tablet 25 mg PO QHS PRN (Reason: sleep) Qty: 30 0RF fluticasone propionate 50 mcg/actuation spray,suspension 1 spray INTRANASAL ONCE Patient Comments: USE ONE SPRAY IN EACH NOSTRIL ONCE DAILY Discharge Instructions Instructions: Skin glue for minor cuts Additional Instructions: As we discussed, the wound was not very deep but rather just persistently bleeding secondary to you being on the blood thinners. This was washed and closed with adhesive. Please allow this to come off on its own, do not pick or pull at this. Avoid putting any type of ointment such as bacitracin, Neosporin or lotions over this as it can cause the glue to breakdown prematurely. Monitor once for signs of infection including redness, warmth, drainage, increased pain, fever/chills. If you develop these or other new/worsening symptom please seek care urgently but again. Otherwise, please follow-up with primary care for reevaluation in the next 1 to 2 weeks. Referrals: Nixon Adrian MD [Primary Care Provider, Medicine] Discharge Data Discharge Date/Time-TO BE ENTERED AT DEPARTURE: 03/29/25 15:25 HPI General Date/Time Provider Initiated Documentation: 03/29/25 14:03 . Limitations to Documentation: no limitations . Information obtained by: patient, family and RN notes reviewed . History of Present Illness 79 year old M presents to the emergency department with the chief complaint of left ankle laceration, described as mild (here for the persistent bleeding more than pain or severity), Patient started experiencing this hour(s) (3) and it has been constant. other things that improve symptom(s), (improved with pressure application) Patient did receive the following treatments prior to arrival, none Related Data Home Medications ?Medication ?Instructions ?Recorded ?Confirmed atorvastatin 80 mg tablet 80 mg PO DAILY 12/04/2403/06 clopidogrel 75 mg tablet (Plavix) 75 mg PO DAILY 12/0403/29/25 nitroglycerin 0.4 mg sublingual 0.4 mg sublingual Q5M PRN 12/04/24 03/29/25 tablet apixaban 5 mg tablet (Eliquis) 5 mg PO BID 12/12/24 carvedilol 6.25 mg tablet 6.25 mg PO BID 12/12/2403/06 losartan 50 mg tablet 50 mg PO DAILY 12/12/2403/06 spironolactone 25 mg tablet 12.5 mg PO DAILY 12/12/24 03/29/25 (Aldactone) diphenhydramine HCl 25 mg tablet 25 mg PO QHS PRN slee p #30 tabs 12/17/24 03/29/25 (Benadryl Allergy) furosemide 20 mg tablet (Lasix) 20 mg PO PRN 12/17/24 03/29/25 fluticasone propionate 50 1 spray intranasal ONCE 03/0603/29/25 mcg/actuation nasal spray,suspension Previous Rx's ?Medication ?Instructions ?Recorded diphenhydramine HCl 25 mg tablet 25 mg PO QHS PRN slee p #30 tabs 12/17/24 (Benadryl Allergy) Allergies Allergy/AdvReac Type Severity Reaction Status Date / Time zolpidem AdvReac Intermediate Night Verified 03/29/25 13:59 Terrors General Stated Complaint: Laceration LORETTA: 4 Review of Systems Constitutional Constitutional: Reports as per HPI, Denies chills and Denies fever(s) Musculoskeletal Musculoskeletal: Reports as per HPI Integumentary/Breasts Skin/Breast: Reports as per HPI Neurologic Neurologic: Reports as per HPI, Denies sensory deficit and Denies paresthesias Exam Const General: cooperative, healthy appearing, comfortable, no acute distress and well developed Nutritional Appearance: average body habitus and well nourished Orientation: alert and awake Resp Effort & Inspection: normal respiratory effort, able to speak in complete sentences and no respiratory distress Cardio Rate: regular rate Rhythm: regular rhythm Skin Trauma: laceration (superficial to left ankle) Neuro General: patient alert and patient awake Cognition: normal cognition Speech: speech normal Gait: normal gait Sensory Exam: no sensory deficits noted Extrem Ankle/foot/toe images: 2 1. Small superficial laceration, linear. About 1 cm in length. Unable to separate the skin edges much but this does have a small amount of bleeding continue from it. No surrounding ecchymosis, erythema, no purulent discharge. Course Vital Signs Vital signs: Vital Signs Temperature 36.3 C L 03/29/25 13:57 Pulse 65 03/29/25 13:57 Respiratory Rate 12 03/29/25 13:57 Blood Pressure 137/79 03/29/25 13:57 Pulse Oximetry 97 03/29/25 13:57 Temperature 36.3 C L 03/29/25 13:57 Temperature Source Oral 03/29/25 13:57 Pulse 65 03/29/25 13:57 Respiratory Rate 12 03/29/25 13:57 Blood Pressure 137/79 03/29/25 13:57 Blood Pressure Position Sitting 03/29/25 13:57 Pulse Oximetry 97 03/29/25 13:57 Oxygen Delivery Method Room Air 03/29/25 13:57 Oxygen Flow Rate 0 03/29/25 13:57 Medical Decision Making Patient is a pleasant 79-year-old gentleman, accompanied by his , with chief complaint of laceration to the left ankle that he sustained about 3 hours prior to arrival on a piece of glass in the trash. Patient feels that the laceration self is fairly minimal but that he continues to bleed, patient is anticoagulated on apixaban. He and his have been trying to apply some pressure but unclear how long the pressure has remained steady. Despite their efforts at home, he continues to have oozing which is what prompted them to come in for further evaluation. He denies any other injury the time of the incident. He has no discomfort associated with the laceration. On exam, patient appears nontoxic. Exam of the left ankle shows a 1 cm superficial linear laceration along the lateral malleolus. Small amount of active bleeding but this does appear to have had some consistency to it based on the saturation of the dressing that they originally had on it. No arterial bleeding. He has 2+ distal pulses. Sensation is intact. This does not involve any ligaments or deep structures. We discussed options regarding hemostasis. Given his location, how linear and easily the wound edges come together, as well as how superficial this is, I do feel that it would lend itself nicely to closure with adhesive. I discussed this with the patient and his and they are both in agreement with this plan. Wound was copiously irrigated, no foreign body or debris is noted, wound is very superficial. Hemostasis was able to be obtained with layer of adhesive over the top. No continued bleeding after allowing the patient to sit for about 30 minutes after adhesive was applied. We discussed care of adhesive at length. We discussed signs symptoms of infection and when to seek care urgently once again. Return precautions were discussed. All of his questions and concerns were addressed and they are in agreement this plan. PFSH All Active Problems (Updated 03/29/25 @ 15:16 by IRISH Grossman) Laceration of ankle (Acute) Weight loss (Acute) Insomnia (Acute) Hemoptysis (Acute) Atrial fibrillation (Chronic) Pulmonary embolism (Chronic) CAD (coronary artery disease) (Chronic) PCI to ramus with dissection, LAD 65% long segment remains RH Normocytic anemia (Acute ~11/2024) Ischemic cardiomyopathy (Acute ~11/2024) EF 32% with acut NSTEMI 11/29/[address] [facility] RH PAF (paroxysmal atrial fibrillation) (Acute ~11/2024) Stage 3a chronic kidney disease (Acute) History of excessive cerumen (Acute) COVID-19 (Acute ~02/14/22) History of total right hip replacement (Acute 01/06/22) Vasomotor rhinitis (Acute) Calculus of left kidney (Acute) Bone spur (Acute 05/03/13) FIRST TOE Depressive disorder (Acute 08/15/13) seasonal affective disorder Elevated BP without diagnosis of hypertension (Acute 10/07/16) History of tobacco use (Acute) Osteoarthritis of left thumb (Acute 10/07/16) Sleep disorder (Acute 01/28/16) Tubular adenoma of colon (Acute 11/15/16) HTN (hypertension) (Chronic) Well adult (Acute) Trigger finger of right hand (Acute) little finger Knee pain, right anterior (Acute) Impacted cerumen of right ear (Acute) Primary osteoarthritis of right knee (Acute) Phlebitis and thrombophlebitis (Acute) Left nephrolithiasis (Acute) Medical History Depressive disorder Calculus of left kidney Surgical History History of ankle fusion (R) History of total left hip replacement (10/31/07) [facility] Primary osteoarthritis of right ankle [place] Ankle Fusion 2016 Repair of inguinal hernia (~2000) B/L Colonoscopy - IV Sedation (11/15/16) BONE SPURS (FEET) (~1979) great toes bilateral - Dr. Munroe Family History Mother , 87 No problems noted. Father , 85 Alzheimer's disease Sister Asthma Brother , 66 Parkinson's disease Brother CAD (coronary artery disease) Asthma Son No problems noted. Daughter No problems noted. Social History Smoking/Tobacco Use Status: Former Tobacco Use tobacco type: cigarettes, pipe and cigars Quit Date: 02/03/90 Tobacco: How many years used: 12 Second Hand Exposure: Yes Smoking risk assessment performed?: Yes Alcohol Intake: current Alcohol Intake frequency: 0-2 drinks per day Alcohol type: beer and hard liquor Substance use type: does not use Counseling given: No Details: States has used marijuana once Caregiver/Support person: No Household members: spouse Housing: house Communication Needs: None Do you need help understanding health information?: Never Pets and animals: No Sexually active: Yes Do you think of yourself as: straight/heterosexual Current gender identity: male What is your relationship status?: How often do you talk on the phone with friends or family?: three or more times per week Panel score (0-1 are the most socially isolated patients): 2 What type of physical activity do you participate in: walking, bicycling and weight lifting Duration: 60-90 minutes/day Frequency: 5-6 times per week Ayesha/Baptist: No preference Special ayesha needs: No Seatbelt use: always Helmet use: Yes Helmet use: always Drive intox or ride w/intox laundry route driver: No Do you feel safe at home: Yes Do you feel safe in your relationship?: Yes Additional Social history: unable to assess privately
== END 2025-03-29 15:25 | disposition home or self-care (01) ==
PROVIDERS: Emergency Provider Physician Assistant; PCP Family Medicine
DX: S91.012A Laceration without foreign body, left ankle, initial encounter (principal); Z79.01 Long term (current) use of anticoagulants; W26.8XXA Contact with other sharp object(s), not elsewhere classified, initial encounter
CPT/HCPCS: 99283; 99282

== ENCOUNTER 2025-04-03 02:57 | Outpatient (CLI) | payer SELFPAY ==
--- NOTE | 2025-04-03 15:00 | DI.US_ITS ---
APPROVED REPORT EXAM: Comprehensive 2D, Doppler, and color-flow Echocardiogram Patient Location: Out-Patient [place]rick Handler: Justin Franco RDCS (AE) Indications: Recheck LV function, heart disease Other Information Study Quality: Fair Conclusion Mildly dilated left ventricle. Normal wall thickness. Ejection fraction is 40%. There are wall motion abnormalities involving the inferior posterior and posterolateral segments Normal right ventricular size and function Mildly dilated left atrium. Normal right atrial size Aortic valve is sclerotic and trileaflet with trace regurgitation Normal mitral valve with mild regurgitation Ascending aorta measures 4.17 cm Wall motion Left Ventricle Left ventricle is mildly dilated. Left ventricular systolic function is decreased. There is normal left ventricular wall thickness. Posterior inferior and posterior lateral wall motion abnormalities There is no ventricular septal defect visualized. LVEF is 40%. Right Ventricle The right ventricle is normal size. The right ventricular systolic function is normal. Atria Left atrium is mildly dilated. The right atrium size is normal. The interatrial septum is intact with no evidence for an atrial septal defect. Aortic Valve Aortic valve is trileaflet. Aortic valve is sclerotic. There is no aortic valvular stenosis. Trace aortic regurgitation. Mitral Valve The mitral valve is normal in structure. No evidence of mitral valve stenosis. Mild mitral regurgitation. Tricuspid Valve The tricuspid valve is normal in structure. There is no tricuspid valve stenosis. Trace tricuspid regurgitation. Pulmonic Valve The pulmonary valve is normal in structure. There is no pulmonic valvular stenosis. Great Vessels The ascending aorta is moderately dilated. IVC is normal in size and collapses >50% with inspiration. Pericardium Mild circumferential pericardial effusion. 2D Dimensions IVSD d PLAX 0.99 cm M: 0.6-1.2 Ao Root d 3.28 cm M: 3.1 - 3.7 LVPW d PLAX 0.98 cm M: 0.6 - 1.2 Ao Asc Diam d 4.17 cm M: 2.6 - 3.4 LVID d PLAX 6.32 cm M: 4.2 - 5.8 LVDs 4.93 cm M: 2.5 - 4.0 LV EF Teichholz 43.4 % FS 21.90 % LV EDV (Teich) 202.5 mL LV ESV (Teich) 114.7 mL Stroke Vol Index (Teich) 43.27 M-Mode TAPSE 1.94 cm (M/F) >1.7 Auto EF LV EDV A4C 181.2 mL LV EDV A2C 211.0 mL LV EDV BP 197.6 mL LV ESV A4C 111.2 mL LV ESV A2C 127.9 mL LV ESV BP 119.3 mL LVEF(%) A4C 38.6 % LVEF(%) A2C 39.4 % LVEF(%) BP 39.6 % LV SV A4C 70.0 ml LV SV A2C 83.0 ml LV SV BP 78.3 ml LV CO A4C 4.7 L/min LV CO A2C 5.6 L/min LV CO BP 5.1 L/min HR A4C 67.05 BPM HR A2C 67.17 BPM LV EDV Index (BP) LA Volume LA Length A4C 6.0 cm LA Length A2C 6.9 cm LA Area A4C s 29.65 cm2 LA Area A2C s 29.54 cm2 LA Vol A4C A-L 125.15 mL LA Vol A2C A-L 106.66 mL LA Vol Biplane A-L 124.7 mL LA Vol/BSA A4C A-L LA Vol/BSA A2C A-L LA Vol/BSA BP A-L 61.4 mL/m2 LA Vol A4C MOD 116.2 mL LA Vol A2C MOD 100.8 mL LA Vol BP MOD 115.1 mL RA Volume RA Area A4C 23.5 cm2 RA ESV A4C (A-L) 84.7mL RA Vol/BSA A4C A-L RA Length A4C 5.6 cm RA ESV A4C (MOD) 80.9mL LV Diastology MV E' medial 0.087 (>0.07 m/s) MV E Vmax 0.99 (0.4-1.3 m/s) MV E/E' MED 11.43 (<14) MV A Vmax 0.95 (0.4-1.3 m/s) MV E' lateral 0.085 (>0.1 m/s) E/A Ratio 1.0 MV E/E' LAT 11.73 (<14) MV E' Average 0.086 m/s MV E/E'(average) 11.58 Aortic Valve AoV Vmax 1.86 m/s LVOT Vmax 0.99 m/s AoV Peak Grad 30.0 mmHg LVOT Peak Grad 3.9 mmHg AoV Area (Vmax) 2.17 cm2 LVOT VTI 0.223 m AoV VTI 0.404 m LVOT Mean Grad 2.8 mmHg AoV Mean Huan. 1.26 m/s LVOT SV 91.22 mL AoV Mean Grad 7.2 mmHg LVOT Diam s 2.25 cm AoV Area (VTI) 2.26 cm2 AV Regurg Peak Gr. 13.85 mmHg Velocity Ratio 0.53 AR Decel [place] 1.4m/sec2 AR DT 2462 msec AR PHT 714 msec AR Vmax 3.39 m/s Pulmonary Valve PV Vmax 0.88 (0.5-1.5 m/s) RVOT Vmax 0.79 m/s PV Peak Grad 3.1 mmHg RVOT Peak Gr. 2.5 mmHg PV Mean Huan 0.66 m/s RVOT VTI 0.155 m PV Mean Grad 1.9 mmHg RVOT Mean Gr. 1.2 mmHg
== END 2025-04-03 03:17 ==
LOC: DI 02:57
PROVIDERS: PCP Family Medicine; Visit Provider Internal Medicine Cardiovascular Disease
DX: I25.10 Atherosclerotic heart disease of native coronary artery without angina pectoris (principal); I35.8 Other nonrheumatic aortic valve disorders
CPT/HCPCS: 93306

== ENCOUNTER → 2025-04-11 13:17 | Outpatient (BNVA) | payer MEDICARE, SELFPAY | PROVIDERS: PCP Family Medicine; Referring Provider Family Medicine; Visit Provider Internal Medicine Cardiovascular Disease | DX: I48.0 Paroxysmal atrial fibrillation (principal); I26.99 Other pulmonary embolism without acute cor pulmonale; I25.10 Atherosclerotic heart disease of native coronary artery without angina pectoris; Z79.01 Long term (current) use of anticoagulants | CPT/HCPCS: 99214 ==

== ENCOUNTER 2025-05-03 11:00 | Outpatient (RCR) | payer SELFPAY ==
[2025-04-10 12:14] VITALS: BP 144/75; PULSE 62
[2025-04-12 11:05] VITALS: BP 99/62; PULSE 61; O2SAT 96
[2025-04-17 11:18] VITALS: BP 114/69; PULSE 68
[2025-04-24 11:48] VITALS: BP 111/65; PULSE 66
[2025-04-26 11:05] VITALS: BP 118/66; PULSE 61; O2SAT 98
[2025-05-03 13:44] VITALS: BP 91/59; PULSE 66
== END 2025-05-05 23:59 | disposition home or self-care (01) ==
LOC: CR 11:00
PROVIDERS: PCP Family Medicine; Visit Provider Internal Medicine Cardiovascular Disease
DX: R69 Illness, unspecified (principal)

== ENCOUNTER 2025-06-28 03:24 | Outpatient (CLI) | payer MEDICARE, SELFPAY ==
[2025-06-28 10:12] LABS: HCT 40.5 % (40.0-50.0); HGB 13.1 g/dL (13.5-17.5); MCH 27.9 pg (27.0-33.0); MCHC 32.3 % (32.0-36.0); MCV 86 fL (80-95); MPV 11.0 fL (8.0-11.0); Platelet Count 231 10^3/uL (130-400); RBC 4.70 10^6/uL (4.36-5.78); RDW 14.6 % (11.8-14.1); RDW-SD 46.5 fL; WBC 6.81 10^3/uL (4.4-10.8)
[2025-06-28 10:51] LABS: ALT 33 U/L (16-63); AST 20 U/L (15-37); Albumin 3.7 g/dL (3.4-5.0); Alkaline Phosphatase 77 U/L (46-116); Anion Gap 7.5 mmol/L (3-11); BUN 24 mg/dL (7-18); Bilirubin, Total 0.8 mg/dL (0.2-1.0); CO2 28.5 mmol/L (21.0-32.0); Calcium 9.1 mg/dL (8.5-10.1); Chloride 106 mmol/L (98-107); Estimated GFR 60.75 (mL/min/1.73m2); Glucose 104 mg/dL (74-106); Potassium 4.1 mmol/L (3.5-5.1); Sodium 142 mmol/L (136-145); Total Protein 7.4 g/dL (6.4-8.2)
== END 2025-06-28 03:25 | disposition home or self-care (01) ==
PROVIDERS: PCP Family Medicine; Visit Provider Family Medicine
DX: R10.9 Unspecified abdominal pain (principal); R53.83 Other fatigue
CPT/HCPCS: 36415; 80053; 85027

== ENCOUNTER 2025-07-03 11:00 | Outpatient (RCR) | payer SELFPAY ==
[2025-06-05 11:22] VITALS: BP 134/78; PULSE 66
[2025-06-07 11:16] VITALS: BP 126/71; PULSE 71
[2025-06-12 15:23] VITALS: BP 131/67; PULSE 72
[2025-06-14 11:00] VITALS: BP 105/64; PULSE 63; O2SAT 98
[2025-06-19 12:38] VITALS: BP 118/70; PULSE 65
[2025-06-21 12:45] VITALS: BP 115/68; PULSE 63
[2025-06-26 11:23] VITALS: BP 114/68; PULSE 65
[2025-06-28 11:00] VITALS: BP 115/69; PULSE 61; O2SAT 95
[2025-07-03 11:22] VITALS: BP 104/66; PULSE 65
== END 2025-07-05 23:59 | disposition home or self-care (01) ==
LOC: CR 11:00
PROVIDERS: PCP Family Medicine; Visit Provider Internal Medicine Cardiovascular Disease
DX: R69 Illness, unspecified (principal)

== ENCOUNTER → 2025-08-09 10:23 | Outpatient (BNVA) | payer MEDICARE, SELFPAY | PROVIDERS: PCP Family Medicine; Referring Provider Family Medicine; Visit Provider Internal Medicine Cardiovascular Disease | DX: I48.0 Paroxysmal atrial fibrillation (principal); I25.10 Atherosclerotic heart disease of native coronary artery without angina pectoris; I26.99 Other pulmonary embolism without acute cor pulmonale; I25.5 Ischemic cardiomyopathy; Z79.01 Long term (current) use of anticoagulants | CPT/HCPCS: 99214 ==